=== PATIENT | male | born 1960 | race Caucasian/White ===

== ENCOUNTER 2017-04-02 11:40 | Inpatient (IN) | payer BC, OTHER ==
[2017-04-02] VITALS (23 sets, daily range): BP systolic 88–117; BP diastolic 71–91
[~2017-04-02] VITALS: Ht 185.4 cm; Wt 133.8 kg
--- NOTE | ~2017-04-02 | EKG ---
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 : 1960 Requested By: Darrell Jiménez Order Number: [id number] MD: Darrell Jiménez Measurements Intervals [place] Rate: 124 P: PA: QRS: 52 QRSD: 87 T: 239 QT: 315 QTc: 453 Interpretive Statements Atrial flutter with 2:1 AV block Low voltage, extremity leads Abnormal R-wave progression, late transition Nonspecific T abnormalities, inferior leads Baseline wander in lead(s) V2 Electronically Signed On 04-04-2017 17:33:04 KRAFT DIGESTER OPERATOR by Darrell Jiménez [email or web address] <ELECTRONICALLY SIGNED> By: Darrell Jiménez MD 04/04/17 1733 1431 1431 Darrell Jiménez MD /MILDRED
--- NOTE | ~2017-04-02 | HC ---
[facility] [place] [address] CONSULTATION Name: MARILEE SALCEDO Room #: [facility]- ADM IN M.R.#: [id number] Admission: 04/02/17 Attend Phys: Bubba Bautista MD Discharge: Date of : 62 Report #: [id number] THIS REPORT FOR: //name// CC: Fei Bautista REASON FOR CONSULTATION: Hypernatremia. HISTORY OF PRESENT ILLNESS: A 56-year-old with extensive past medical history. He was transferred from [facility]. He was found to be hypoxic and was transferred for further evaluation and management. He required intubation and was admitted to the ICU. The patient is not able to provide me with the details of the history. His girlfriend is by bedside and she provided me with all of the history. He is a 56-year-old way back on 03/17 had some issues with chest pain while at work. He went to a [facility]. He was found to have extensive coronary artery disease and required intubation. Cardiac catheterization was done. He had V-fib and V-tach arrest. He was placed on a balloon pump post procedure. Ejection fraction was found to be 20%. He had large bilateral pulmonary emboli and DVT of the lower extremities. He was stabilized in [place] and was transferred to the [facility] for further rehabilitation. Emergency medical services were called on the patient after his desaturation where he was found to be in atrial flutter with a heart rate of 150. Chest x-ray on presentation showed bilateral infiltrates. His girlfriend reported to me that he has very decreased p.o. intake or reduced p.o. intake in the last few days. He failed swallowing evaluation. He was receiving some sort of diuretics in the facility. I am being asked to manage his hypernatremia. PAST MEDICAL HISTORY: 1. Coronary artery disease as stated above, recent STEMI with three stents and balloon pump therapy. 2. Cardiogenic shock. 3. V Fib. 4. V tach. 5. Atrial flutter. 6. Bilateral pulmonary emboli. 7. IVC filter placement. 8. DVT of the lower extremities. PAST SURGICAL HISTORY: Cardiac catheterization and IVC filter placement. FAMILY HISTORY: Per his girlfriend, he has extensive coronary artery disease in his family SOCIAL HISTORY: He is a smoker, but no drug or alcohol abuse. REVIEW OF SYSTEMS: Unobtainable. Currently, the patient is intubated and sedated. [facility] [address] [place] [address] CONSULTATION Name: MARILEE SALCEDO Room #: 245-P [facility] IN [facility]#: [id number] Admission: 04/02/17 Attend Phys: Bubba Bautista MD Discharge: Date of : 62 Report #: [id number] PHYSICAL EXAMINATION: VITAL SIGNS: Today, blood pressure is 101/78. Pulse rate is 115. HEAD AND NECK: Intubated. CHEST: Decreased air entry bilaterally with crackles. CARDIOVASCULAR: Irregular with no rub. ABDOMEN: Soft and nontender. LOWER EXTREMITIES: +2 edema. LABORATORY DATA: From today reviewed. White blood cell count is up to 28.9, hemoglobin 13 and platelets 320. Sodium 157, potassium 3.5, BUN 52 and creatinine 1.5 at baseline. His chest x-ray was reviewed and it showed bilateral pulmonary infiltrates . IMAGES: CT, bilateral pleural effusion. ASSESSMENT: 1. Hypernatremia: 2. Acute respiratory failure. 3. Possible pneumonitis, hospital-acquired, vent associated. 4. Sepsis. 5. Atrial flutter. 6. Extensive coronary artery disease, V-fib, V-tach arrest. 7. Ischemic cardiomyopathy with an ejection fraction of 20%. 6. It will be very difficult to manage the patient's electrolyte given his heart status. He had received numerous combinations of IV fluids and diuretics. He has decreased p.o. intake and failed swallowing in the last 48 hours. As for now, I will place him on a very gentle D5W regimen to rectify his sodium. I would like for him to have some tube feed and flushes when he is more stable. 7. Septic workup had been initiated. 8. Avoid diuresis for today; however, he will definitely need some diuresis in the next 24 hours given his volume status and his chest x-ray. 9. Cardiology team is managing his flutter, coronary artery disease and cardiomyopathy. 10. Vent management per Pulmonary. 11. Strict input and output. This is hypervolemic hypernatremia and we will try to manage with a combination of free water and diuretics. We will continue to follow along. <ELECTRONICALLY SIGNED> By: Julio Robertson MD 04/06/17 0850 1503 0424 Julio Robertson MD /nt
--- NOTE | ~2017-04-02 | HC ---
[facility] [place] [address] CONSULTATION Name: MARILEE SALCEDO Room #: 209-P ADM IN M.R.#: [id number] Admission: 04/02/17 Attend Phys: Bubba Bautista MD Discharge: Date of : 62 Report #: [id number] THIS REPORT FOR: //name// CC: Fei Bautista DATE OF SERVICE: 04/14/2017 HISTORY OF PRESENT ILLNESS: A 56-year-old white male who had an out of the hospital cardiac arrest in 02/2017, was hospitalized at [facility]. His course was complicated by respiratory failure. He was noted to have pericardial effusion, DVT with PE with IVC filter, severe cardiomyopathy. He was able to be transferred to [facility] for 1 day, but while he was there, he started running a fever with worsening shortness of breath. He was readmitted this time to [facility]. He is noted to have respiratory failure with pneumonia, was reintubated from 04/02 until 04/09. He underwent thoracentesis of the left side. He has had atrial flutter, treated with digoxin and amiodarone. He is noted to have ischemic cardiomyopathy with an ejection fraction of 20%. He has a history of large bilateral saddle embolus and left lower extremity DVT and has an IVC filter in place. He has been treated with Lovenox, but this has been on hold after hematuria and thoracentesis. He is noted to have MSSA pneumonia. He has dysphagia with speech therapy involved and is on a pureed with nectar thickened liquid diet that is just starting now. He currently has a Dobhoff feeding tube in place. He does have an encephalopathy that is noted to be improving. He has been noted to have severe sepsis. He is noted to be very weak with his prolonged hospitalizations. We are seeing him in rehabilitation medicine consultation. PAST MEDICAL HISTORY: As noted above. He has a history of coronary artery disease, COPD, ischemic cardiomyopathy, history of DVT, pulmonary embolism, and chronic anticoagulation. PAST SURGICAL HISTORY: Unknown. SOCIAL HISTORY: Lives in [place], [place] with a female significant other, 4 steps in. He did not utilize gait aids previously. There are 14 inside steps. 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 Significant other apparently works outside the home. ALLERGIES: CAMPHOR, MENTHOL, PHENOL, SALICYLIC ACID. MEDICATIONS: Please see the full medication listing. REVIEW OF SYSTEMS: Very weak, has fear of falling. No complaints currently of chest pain, shortness of breath, or abdominal discomfort. No focal extremity pain complaints. [address] [address] CONSULTATION Name: MARILEE SALCEDO Room #: 209-P [facility] IN M.R.#: [id number] Admission: 04/02/17 Attend Phys: Bubba Bautista MD Discharge: Date of : 62 Report #: [id number] PHYSICAL EXAMINATION: GENERAL: A 56-year-old obese white male, in no obvious distress. VITAL SIGNS: Last recorded height of 6 feet 1 inch with a weight of 303 pounds. Temperature 97.9, pulse 71, respirations 17, blood pressure 90/74. NEUROLOGIC: He has the Dobhoff feeding tube in place. Nasal prong O2. Facies appeared symmetric. He has a soft voice, could verbalize some basic statements. We will follow basic 1 step commands. EOMs are full. EXTREMITIES: Functional range of motion of the upper extremities with arms, both quite weak a grade 3-3+ lower extremities. He has chronic venous stasis changes in his legs. Strength is quite weak a grade 3. Tone is intact. He actually was needing assist of 3 to transfer to the chair. There is a note of [facility] lift usage. ASSESSMENT: A 56-year-old male with the following problem list: 1. Multifactorial encephalopathy appears to be improving. 2. Critical illness myopathy. 3. Severe sepsis. 4. Respiratory failure with MSSA pneumonia. 5. Atrial flutter, on digoxin and amiodarone. 6. Status post thoracentesis. 7. History of large bilateral saddle embolus and left lower extremity DVT. IVC filter in place. Lovenox on hold after hematuria and thoracentesis. 8. Hematuria. 9. Coronary artery disease with recent STEMI and stent placement at [facility]. 10. Ischemic cardiomyopathy, left ventricular ejection fraction 20%. 11. Exogenous obesity. 12. Chronic anticoagulation. PLAN: I encouraged the patient regarding participating and working hard in therapies to try to improve his strength and endurance. We will follow along regarding rehab therapy issues. He is certainly may be a candidate for an acute in-hospital inpatient rehabilitation stay as he further medically stabilizes. We will be glad to follow along with you regarding his rehab therapy needs. <ELECTRONICALLY SIGNED> By: Bubba Mcnulty MD 04/17/17 1306 1140 1718 Bubba Mcnulty MD /ANTONIA
--- NOTE | ~2017-04-02 | HC ---
[facility] [place] [address] CONSULTATION Name: MARILEE SALCEDO Room #: 245-P ADM IN M.R.#: [id number] Admission: 04/02/17 Attend Phys: Bubba Bautista MD Discharge: Date of : 62 Report #: [id number] THIS REPORT FOR: //name// CC: Fei Bautista DATE OF SERVICE: 04/03/2017 REASON FOR CONSULTATION: I was asked to evaluate concerning sepsis and respiratory failure. HISTORY OF PRESENT ILLNESS: The patient is a 56-year-old, initially admitted to [facility] on 03/11/2017 with acute WA. He underwent cardiac catheterization, found multivessel disease. He had evidence of cardiogenic shock with inferior posterior WA. He had total occlusion of the LAD. He had intraaortic balloon pump placed, required multiple defibrillations for cardiac arrest due to VT and v fib. Post-procedure was intubated. He had bilateral infiltrates. He was seen by the ID service there and placed on vancomycin and Zosyn. He was later weaned from the ventilator. I do not have any microbiology reports, but her last hospital note available noted that he had been extubated and was improving. No documentation of a specific organism causing pneumonia. My suspicion is he likely had aspiration component. He was then transferred to [facility] on BiPAP. Developed further respiratory compromise, fever and was urgently transported to [facility] Emergency Room. There he was intubated, placed on mechanical ventilation. He had temperature up to 102.2 degrees. Required fluid resuscitation. Now off pressors. He had atrial fibrillation/flutter. Now on FiO2 of 80%. He has some bloody tracheal secretions. No emesis. No diarrhea. He has an indwelling Hayward catheter. ALLERGIES: CAMPHOR AND SALICYLIC ACID. MEDICATIONS: As noted on his MAY, which were reviewed. Now vancomycin, Zosyn and Levaquin. PAST MEDICAL HISTORY: Hypertension, hyperlipidemia, obesity, tobacco abuse, previous saddle pulmonary embolus in 06/2016, IVC filter placement. FAMILY HISTORY: Noncontributory. SOCIAL HISTORY: Smoker of cigarettes, unclear on his alcohol use. 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 REVIEW OF SYSTEMS: The patient is unable to give any details. He was intubated. He was sedated on FiO2 of 80%. He has a right upper extremity PICC, indwelling Hayward catheter, Dobbhoff tube in place. [facility] [address] [place] [address] CONSULTATION Name: MARILEE SALCEDO Room #: 245-P [facility] IN ..#: [id number] Admission: 04/02/17 Attend Phys: Bubba Bautista MD Discharge: Date of : 62 Report #: [id number] PHYSICAL EXAMINATION: VITAL SIGNS: Temperature is 102 degrees, heart rate 115, blood pressure 101/78. GENERAL: He is on Cardizem and amiodarone drip. He is on propofol. He was mottled in his lower extremities. 2+ anasarca. LUNGS: Coarse bilaterally. HEART: Tachycardic and regular. No appreciable murmur or rub. ABDOMEN: Obese. No hepatosplenomegaly or mass appreciated. EXTERNAL GENITALIA: Unremarkable. EXTREMITIES: Has a pressure wound to the plantar aspect of his right foot over the fifth metatarsal region. No surrounding cellulitis. LABORATORY STUDIES: Sodium 157, potassium 3.5, bicarbonate 33, creatinine 1.5. Liver function test normal. Lactate 2. Troponin 0.19. BNP 4296. Hemoglobin 13, WBC 28.9 with 90% segs, 3% bands, platelet count was 320,000. Urinalysis: Few wbc's, moderate rbc's, few bacteria. Blood culture is negative to date. Sputum culture pending. Influenza antigen negative. Chest x-ray: Bilateral effusions with basilar infiltrates. CT abdomen: No definite pathology. Does have bilateral effusions and atelectasis, infiltrates in the bases. IMPRESSION: A 56-year-old with underlying coronary disease, obesity, hypertension, post-myocardial infarction and cardiogenic shock with respiratory failure, now with healthcare-associated pneumonia, most likely cause of his decline. Does have bilateral infiltrates with bilateral effusions. He has no organisms yet identified. I do not know of any specific pathogen identified at [facility]. Would recommend continuing broad antibiotic coverage and full support. We will obtain microbiology reports from [facility] and obtain blood, urine and sputum cultures here. Cardiovascular Medicine is following as well as Pulmonary Medicine. <ELECTRONICALLY SIGNED> By: Christophe Mello MD 04/06/17 0625 1249 2218 Christophe Mello MD /nt
--- NOTE | ~2017-04-02 | CNG ---
[facility] [place] [address] CYTO-NONGYN REPORT PROCEDURE Name: MARILEE DISLA Room #: 245-P ADM IN M.R.#: [id number] Admission: 04/02/17 Date of : 62 Discharge: Report #: [id number] Path Case #: [id number] CYTOPATHOLOGY REPORT COLLECTION DATE: 04/11/2017 RECEIVED DATE: 04/13/2017 SUBMITTING PHYS: Dr. Helen Brock OTHER PHYS: Dr. Bubba Mello CLINICAL HISTORY: HCAP, respiratory failure with hypoxia SPECIMEN(S) RECEIVED: A.Pleural fluid, Left * * * * * * * * * * * * FINAL DIAGNOSIS: A. Left Pleural fluid: - No definite malignant epithelial cells identified. Scattered highly reactive mesothelial cells are present. PATHOLOGIST: Margie Sauceda M.D. REPORT ELECTRONICALLY SIGNED BY: Margie Sauceda M.D. DATE/TIME: 04/14/2017 13:22 * * * * * * * * * * * * GROSS PATHOLOGY: A. Pleural fluid, Left: The specimen is submitted unfixed, labeled "Marilee Disla". Received by the Cytology Department is 34 mL of cloudy red fluid. One ThinPrep slide and a formalin fixed cell block were prepared. ([id number]) BOTTOM TURNING LATHE TURNER(S): GENEVA Sam(ASCP) INITIAL CPT CODE(S): A; 38899, 91885 Professional services performed by [facility] at [facility] [address], [place] [address] Technical services performed by [facility] at [address] [place] [address]., [address], [place] [address]. [facility] [address] [place] [address], [facility] [address] [place], [place] [address] [place] [address] [place] [address] CYTO-NONGYN REPORT PROCEDURE Name: MARILEE DISLA Room #: 245-P ADM IN M.R.#: [id number] Admission: 04/02/17 Date of : 62 Discharge: Report #: [id number] Path Case #: [id number] PHONE: [phone] DIRECTOR: Quinn rBeen M.D. * * * END OF REPORT * * *
--- NOTE | ~2017-04-02 | EKG ---
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
--- NOTE | ~2017-04-02 | 2DMMODE ---
[address] [address] 2 D/M-MODE ECHOCARDIOGRAM Name: MARILEE SALCEDO Room #: 245-P ADM IN M.R.#: [id number] Admission: 04/02/17 Attend Phys: Wanda Perez Discharge: Date of : 62 Date of Service: 04/06/1708 Report #: [id number] THIS REPORT FOR: //name// APPROVED REPORT Study performed: 04/06/2017 08:13:54 EXAM: Limited 2D Echocardiogram Patient Location: ICU Room #: [facility] Status: routine BSA: 2.56 HR: 85 bpm BP: 93/58 mmHg Other Information Study Quality: Adequate Indications Limited follow up echo for LV function and pericardial effusion. Left Ventricle Left ventricular systolic function is severely decreased. LVEF is 25%. Right Ventricle Right ventricle is hypokinetic. Aortic Valve The aortic valve is normal in structure. Mitral Valve Mitral annular calcification Tricuspid Valve The tricuspid valve is normal in structure. Great Vessels IVC is dilated and collapses <50% with inspiration. Pericardium Trivial pericardial effusion. Left pleural effusion noted. [address] [address] 2 D/M-MODE ECHOCARDIOGRAM Name: MARILEE SALCEDO Room #: 245-P ADM IN M.R.#: [id number] Admission: 04/02/17 Attend Phys: Wanda Perez Discharge: Date of : 62 Date of Service: 04/06/17907 Report #: [id number] <Conclusion> Left ventricular systolic function is severely decreased. LVEF is 25%. The aortic valve is normal in structure. Mitral annular calcification Trivial pericardial effusion. Left pleural effusion noted. <ELECTRONICALLY SIGNED> By: Sean Cowart MD, FACC 04/06/17907 7 7 Sean Cowart MD, FACC /INF
--- NOTE | ~2017-04-02 | H ---
[facility] [place] [address] HISTORY AND PHYSICAL Name: MARILEE SALCEDO Room #: 245-P [facility] IN M.R.#: [id number] Admission: 04/02/17 Attend Phys: Bubba Bautista MD Discharge: Date of : 62 Report #: [id number] THIS REPORT FOR: //name// CC: Fei Bautista DATE OF SERVICE: 04/02/2017 CHIEF COMPLAINT: Shortness of breath. HISTORY OF PRESENT ILLNESS: The patient is a 56-year-old gentleman transferred from [facility] with reports of shortness of breath and lethargy. He was transferred their late yesterday evening from [facility] for continued care following a cardiac incident. Apparently, he suffered a myocardial infarction that required placement of a stent via cardiac catheterization and developed respiratory issues during his stay. He was transferred on BiPAP and medical therapy with hopes to wean from the BiPAP. However, early this morning became more lethargic with low O2 sats despite full treatment and he was tachycardic. He also developed fever to 101 and was directed to the ER. No further information is available from the patient as he is intubated and sedated and I have no records from the outlying hospitals available. All the information was obtained by reviewing the electronic record and speaking to the ER physician. PAST MEDICAL HISTORY: Coronary artery disease, COPD, ischemic cardiomyopathy, history of DVT and pulmonary embolus in 06/2016, chronic anticoagulation. PAST SURGICAL HISTORY: Unknown. FAMILY HISTORY: Unknown. SOCIAL HISTORY: Unknown. ALLERGIES: CAMPHOR, PHENOL, MENTHOL, SALICYLIC ACID. MEDICATIONS: Albuterol, amiodarone, Eliquis, aspirin, Plavix, Ativan, Lasix, diltiazem, vancomycin, Zosyn, Haldol. REVIEW OF SYSTEMS: He is unable to give a review. OBJECTIVE: VITAL SIGNS: Temperature 39, pulse 159, respirations 25, blood pressure 103/71, O2 sat 99% on the ventilator. GENERAL: He is sedated with life support tubes in place. HEAD AND NECK: Unremarkable. LUNGS: Clear anteriorly, diminished in the bases. [facility] [address] [place] [address] HISTORY AND PHYSICAL Name: MARILEE SALCEDO Room #: 245-P [facility] IN M.R.#: [id number] Admission: 04/02/17 Attend Phys: Bubba Bautista MD Discharge: Date of : 62 Report #: [id number] HEART: Tachycardic, regular rhythm. ABDOMEN: Soft, obese, normoactive bowel sounds. EXTREMITIES: No cyanosis, clubbing or edema. There is a small skin area on the right foot. NEUROLOGIC: He is sedated currently. LABORATORY DATA: White count 22. Sodium 157, BUN 50, creatinine 1.5, glucose 305, bilirubin 1.6. ASSESSMENT: 1. Sepsis. 2. Hypoxic respiratory failure. 3. Coronary artery disease. 4. Recent myocardial infarction with reports of stent placement. 5. Ischemic cardiomyopathy with reports of ejection fraction 20%. 6. History of venous thromboembolism 06/2016. 7. Atrial fibrillation with rapid ventricular response. 8. Hypernatremia. 9. Moderate protein-calorie malnutrition. PLAN: He has been intubated in the ER and placed in ICU. Dr. Almeida has assessed him for critical care and pulmonary support. Dr. Mello has been consulted from Infectious Disease and Dr. Adan from Cardiology. He remains critically ill with full ICU care in place. <ELECTRONICALLY SIGNED> By: Bubba Bautista MD 04/03/17 0927 1643 1701 Bubba Bautista MD /nt
--- NOTE | ~2017-04-02 | 2DMMODE ---
[facility] [address] [place] [address] 2 D/M-MODE ECHOCARDIOGRAM Name: MARILEE SALCEDO Room #: 245-P ADM IN M.R.#: [id number] Admission: 04/02/17 Attend Phys: Wanda Perez Discharge: Date of : 62 Date of Service: 04/02/17 1658 Report #: [id number] THIS REPORT FOR: //name// APPROVED REPORT Study performed: 04/02/2017 15:05:04 EXAM: Comprehensive 2D, Doppler, and color-flow Echocardiogram Patient Location: ICU Room #: [facility] Status: routine BSA: 2.31 HR: 130 bpm BP: 103/71 mmHg Rhythm: Tachycardia Other Information Study Quality: Adequate/Patient in ICU on vent Technically limited study due to inability to move the patient and morbid obesity.. Indications Short of air. Recent MT. 2D Dimensions RVDd: 42.53 mm LVEF(%): 30.04 (>50%) IVSd: 7.88 (7-11mm) LVOT Diam: 22.85 (18-24mm) LVDd: 58.56 mm PWd: 10.49 (7-11mm) LVDs: 50.16 (25-40mm) Aortic Root: 38.75 mm Duenas's LVEF: 30.04 % Volumes Left Atrial Volume (Systole) Single Plane 4CH: 88.34 mL Single Plane 2CH: 60.93 mL LA ESV Index: 35.00 mL/m2 Aortic Valve AoV Peak Cedric.: 0.87 m/s AO Peak Gr.: 3.01 mmHg LVOT Max P.83 mmHg LVOT Max V: 0.68 m/s EDISON Vmax: 3.20 cm2 Mitral Valve [facility] [address] [place] [address] 2 D/M-MODE ECHOCARDIOGRAM Name: MARILEE SALCEDO Room #: 245-P [facility] IN .R.#: [id number] Admission: 04/02/17 Attend Phys: Wanda Perez Discharge: Date of : 62 Date of Service: 04/02/17 1658 Report #: [id number] MV Decel. Time: 167.05 ms MV E Max Cedric.: 0.94 m/s Pulmonary Valve PV Peak Cedric.: 0.66 m/s PV Peak Gr.: 1.73 mmHg Tricuspid Valve RAP Estimate: 15.00 mmHg Left Ventricle Left ventricle is mildly dilated. There is global hypokinesis of the left ventricle. There is normal left ventricular wall thickness. Left ventricular systolic function is severely decreased. LVEF <20%. This study is not technically sufficient to allow evaluation of the LV diastolic function. Right Ventricle The right ventricle is normal size. Right ventricle is mildly hypokinetic. Atria Left atrium is mildly dilated. The right atrium size is normal. Aortic Valve The aortic valve is normal in structure. Trace aortic regurgitation. There is no aortic valvular stenosis. Mitral Valve There is mitral annular calcification. Mild mitral regurgitation. Tricuspid Valve The tricuspid valve is normal in structure. There is no tricuspid valve regurgitation noted. Unable to assess PA pressure. Pulmonic Valve Pulmonic valve is not well visualized. Great Vessels Aortic root is mildly dilated at 3.9cm. Ascending aorta is not well visualized. IVC is dilated and collapses <50% with inspiration. Pericardium Moderate pericardial effusion. [facility] [address] [place] [address] 2 D/M-MODE ECHOCARDIOGRAM Name: MARILEE SALCEDO Room #: 245-P [facility] IN M.R.#: [id number] Admission: 04/02/17 Attend Phys: Wanda Perez Discharge: Date of : 62 Date of Service: 04/02/171657 Report #: [id number] <Conclusion> Technically difficult study Left ventricular systolic function is severely decreased. There is global hypokinesis of the left ventricle. LVEF <20%. The aortic valve is normal in structure. No aortic valvular stenosis. Trace insufficiency There is mitral annular calcification. Mild mitral regurgitation. Moderate pericardial effusion. <ELECTRONICALLY SIGNED> By: Sean Cowart MD, [facility] 04/02/171657 57 1658 Sean Cowart MD, FACC /INF
--- NOTE | ~2017-04-02 | HC ---
[facility] [place] [address] CONSULTATION Name: MARILEE SALCEDO Room #: [facility]- ADM IN M.R.#: [id number] Admission: 04/02/17 Attend Phys: Bubba Bautista MD Discharge: Date of : 62 Report #: [id number] THIS REPORT FOR: //name// CC: Fei Bautista DATE OF SERVICE: 04/02/2017 REFERRING PROVIDER: Dr. Fei Mello. REASON FOR CONSULTATION: Respiratory failure. CHIEF COMPLAINT: Shortness of breath. HISTORY OF PRESENT ILLNESS: Our group is called by Dr. Steven in the Emergency Department to consult to evaluate this patient seen in the ICU. The patient is a 56-year-old male, who is currently on the ventilator and unable to give any history. Apparently, he was recently hospitalized at [facility] for acute myocardial infarction, may have been transferred on a ventilator to [facility], although records are scanned, apparently was seen earlier today there after recent admission, just what sounds like yesterday, was subsequently placed on BiPAP due to respiratory failure, fever and pulmonary infiltrates and subsequently transferred here for further evaluation. The patient was in respiratory distress in the Emergency Department and subsequently intubated and admitted, noted to be hypotensive, febrile, leukocytosis, as mentioned central pulmonary infiltrates bilaterally as well as significant hemoptysis. The patient is now reasonably stable after some IV fluids, on mechanical ventilatory support in the ICU. The patient has been anticoagulated with Eliquis and Plavix, presumably due to recent ME and history of atrial fibrillation and prior pulmonary emboli. ALLERGIES: INCLUDE SALICYLIC ACID, MENTHOL, CAMPHOR, AND PHENOL. MEDICATIONS: Included amiodarone, albuterol, Eliquis, aspirin, Plavix, Ativan, Lasix and then recently vancomycin, Zosyn, Haldol. PAST MEDICAL HISTORY: 1. History of coronary artery disease. 2. Atrial fibrillation. 3. History of pulmonary embolism in 06/2016. SOCIAL HISTORY, FAMILY HISTORY AND REVIEW OF SYSTEMS: Unobtainable at present due to current status neurologically. PHYSICAL EXAMINATION: VITAL SIGNS: Temperature 39.0, pulse 160s and irregular, respiratory rate 20s, [facility] [address] [place] [address] CONSULTATION Name: MARILEE SALCEDO Room #: 245-P ADM IN M.R.#: [id number] Admission: 04/02/17 Attend Phys: Bubba Bautista MD Discharge: Date of : 62 Report #: [id number] blood pressure 103/71. GENERAL: This is an obese, middle-aged male, sedated on mechanical ventilatory support. ENT: Reveals endotracheal tube in place. NECK: Supple, no lymphadenopathy. What appears to be prior right IJ puncture is noted in the right neck. LUNGS: Coarse rhonchi heard throughout. CARDIOVASCULAR: Heart was tachycardic and irregular. No murmurs. ABDOMEN: Obese, soft, nontender, no masses. Bowel sounds diminished, but present. EXTREMITIES: Slightly cool on the right greater than the left, 1+ pulses in the upper and lower extremities, some chronic venous stasis appearing changes noted in the lower extremities. NEUROLOGIC: The patient heavily sedated, not responsive. LABORATORY DATA: White blood cell count 23,000, hemoglobin 15, hematocrit 48, platelet count 443. Sodium 156, potassium 3.8, chloride 115, bicarbonate 34, BUN 49, creatinine 1.4, glucose 356. Arterial blood gas on assist control, tidal volume 600, rate of 16, PEEP of 8, FiO2 100% revealed a lactate of 2.36, pH 7.42, pCO2 47, pO2 139, bicarbonate 30. ProBNP was 4296. Chest x-ray as described in HPI. IMPRESSION: 1. Pulmonary infiltrates most consistent with healthcare-associated pneumonia, but also consider the possibility of influenza. This does not appear to be pulmonary edema process on chest radiograph. 2. Hemoptysis, likely due to above and ongoing aggressive anticoagulant therapy. 3. Recent myocardial infarction with probable stenting based on records available. 4. Respiratory failure, hypoxemic. 5. Morbid obesity. 6. Hyperglycemia. 7. Leukocytosis. 8. Cardiomyopathy by report, ejection fraction 20%. SUGGESTIONS: 1. The patient has already received broad-spectrum antimicrobial therapy. We will ask Infectious Disease services to assist with management of antibiotics. 2. Sputum and blood cultures. 3. Respiratory viral panel. 4. Begin sepsis protocol given elevated lactate, leukocytosis, fever and tachycardia. 5. Cardiology consultation regarding atrial fibrillation, recent myocardial infarction and cardiomyopathy. 6. Check echocardiogram. [address] [address] CONSULTATION Name: MARILEE SALCEDO Room #: 245-P ADM IN M.R.#: [id number] Admission: 04/02/17 Attend Phys: Bubba Bautista MD Discharge: Date of : 62 Report #: [id number] 7. ICU care. 8. Place central venous catheter, PICC line most appropriate given the aggressive anticoagulant therapy. 9. Hydration. 10. Free water to correct hypernatremia. 11. Obtain further records. 12. Discuss with family when available. Discussed with nursing at bedside and Dr. Steven in the Emergency Department. Total critical care time was 40 minutes at this point not including procedures. <ELECTRONICALLY SIGNED> By: Finn Almeida MD 04/03/17 1726 [id number] [id number] Finn Almeida MD /jazmin
--- NOTE | ~2017-04-02 | CNG ---
[facility] [place] [address] CYTO-NONGYN REPORT PROCEDURE Name: MARILEE DISLA Room #: 209-P ADM IN M.R.#: [id number] Admission: 04/02/17 Date of : 62 Discharge: Report #: [id number] Path Case #: [id number] CYTOPATHOLOGY REPORT COLLECTION DATE: 04/18/2017 RECEIVED DATE: 04/20/2017 SUBMITTING PHYS: Dr. Finn Almeida OTHER PHYS: Dr. Bubba Mello CLINICAL HISTORY: HCAP; Resp failure with hypoxia SPECIMEN(S) RECEIVED: A.Pleural fluid * * * * * * * * * * * * FINAL DIAGNOSIS: A. Pleural fluid: - No malignant epithelial cells identified. - Reactive mesothelial cells and acute and chronic inflammation identified. PATHOLOGIST: Emily Stevens M.D. REPORT ELECTRONICALLY SIGNED BY: Emily Stevens M.D. DATE/TIME: 04/21/2017 11:58 * * * * * * * * * * * * GROSS PATHOLOGY: A. Pleural fluid: The specimen is submitted unfixed, labeled "Marilee Disla". Received by the Cytology Department is 20 mL of cloudy yellow fluid. One ThinPrep slide and a formalin fixed cell block were prepared. (mm 04.20.2017) SAP DIRECTOR(S): GENEVA Posadas([facility] INITIAL CPT CODE(S): A; 04970, 55201 Professional services performed by [facility] at [place] [address], [place] [address] Technical services performed by [facility] at [address] [place] [address]., [address], [place] [address]. [facility] [address] [place] [address], [facility] [address] [place], [place] [address] [place] [address] [place] [address] CYTO-NONGYN REPORT PROCEDURE Name: MARILEE DISLA Room #: 209-P ADM IN M.R.#: [id number] Admission: 04/02/17 Date of : 62 Discharge: Report #: [id number] Path Case #: [id number] PHONE: [phone] DIRECTOR: Quinn Breen M.D. * * * END OF REPORT * * *
[2017-04-02 12:13] LABS: HEMATOCRIT 47.9 % (42.0-52.0); HEMOGLOBIN 15.1 gm/dL (14.0-18.0); MCH 30.1 pg (26.0-34.0); MCHC 31.5 g/dL (28.0-37.0); MCV 95.3 fL (80.0-100.0); PLATELET COUNT 443 thou/uL (150-400); RBC 5.02 mil/uL (4.50-6.00); RDW 15.4 % (10.5-14.5); WBC 22.6 thou/uL (4.0-11.0)
[2017-04-02 12:17] LABS: CALCIUM 9.6 mg/dL (8.5-10.1); CREATININE 1.4 mg/dL (0.7-1.3); POTASSIUM 3.8 mmol/L (3.5-5.1)
[2017-04-02 13:01] LABS: URINE BILIRUBIN NEGATIVE (Negative); URINE BLOOD 3+ (Negative); URINE CLARITY CLEAR; URINE COLOR YELLOW; URINE GLUCOSE-RANDOM* NEGATIVE (Negative); URINE KETONES NEGATIVE (Negative); URINE LEUKOCYTES-REFLEX NEGATIVE (Negative); URINE NITRITE-REFLEX NEGATIVE (Negative); URINE PROTEIN (DIPSTICK) 2+ (Negative); URINE SPECIFIC GRAVITY >= 1.030 (1.005-1.035)
[2017-04-02 13:03] LABS: ABSOLUTE NEUTROPHILS 20.6 thou/uL (1.4-8.2); ANISOCYTOSIS SLIGHT
[2017-04-02] MEDS ORDERED: ALBUTEROL2.5 MG/31 INH (13:29)
[2017-04-02] MEDS ORDERED: PACERONE 200 M200 M1 PO (13:29)
[2017-04-02] MEDS ORDERED: PLAVIX 75 MG TA75 M1 PO (13:30)
[2017-04-02] MEDS ORDERED: ASPIR 8181 M1 PO (13:30)
[2017-04-02] MEDS ORDERED: ATIVAN0.5 MG PO (13:30)
[2017-04-02] MEDS ORDERED: ELIQUIS5 MG PO (13:30)
[2017-04-02] MEDS ORDERED: MIRALAX17 GM PO (13:31)
[2017-04-02] MEDS ORDERED: LASIX 10 MG/10 MG/M1 IV PUSH (13:31)
[2017-04-02] MEDS ORDERED: CARDIZEM30 MG IV (13:32)
[2017-04-02] MEDS ORDERED: ZOSYN 3.3753.375 GM IV (13:33)
[2017-04-02] MEDS ORDERED: VANCO 1 GR1 GM/250 M IV (13:33)
[2017-04-02] MEDS ORDERED: HALDOL5 MG/1 ML IV (13:34)
[2017-04-02 13:41] LABS: CRYSTALS None Seen /LPF (None Seen); HYALINE CASTS 4-10 Moderate /LPF (None Seen); SQUAMOUS None Seen /LPF (0-3); URINE WBC-REFLEX 0-5 Rare /HPF (0-5)
[2017-04-02 13:42] LABS: BACTERIA-REFLEX 1-9 Few /HPF (None Seen)
[2017-04-02 14:28] LABS: BE(vivo) 4.6 mmol/L (-2 to +3); HCO3 30.1 mmol/L (22.0-26.0); PCO2 47.4 mmHg (35.0-45.0)
[2017-04-02 16:14] LABS: HEMATOCRIT 43.3 % (42.0-52.0); HEMOGLOBIN 13.7 gm/dL (14.0-18.0); MCH 30.2 pg (26.0-34.0); MCHC 31.7 g/dL (28.0-37.0); MCV 95.3 fL (80.0-100.0); RBC 4.54 mil/uL (4.50-6.00); RDW 15.6 % (10.5-14.5); WBC 22.5 thou/uL (4.0-11.0)
[2017-04-02 16:19] LABS: PLATELET COUNT 345 thou/uL (150-400)
[2017-04-02 16:29] LABS: ALBUMIN 2.4 g/dL (3.4-5.0); CREATININE 1.5 mg/dL (0.7-1.3); FIBRINOGEN 438.2 mg/dL (210-360); INR 1.3; POTASSIUM 3.9 mmol/L (3.5-5.1); PROTIME 13.1 Seconds (9.3-11.4); TOTAL BILIRUBIN 1.6 mg/dL (<0.1-1.0); TOTAL PROTEIN 6.6 g/dL (6.4-8.2)
[2017-04-02 16:49] LABS: ABSOLUTE NEUTROPHILS 20.3 thou/uL (1.4-8.2)
[2017-04-02 21:27] LABS: HEMATOCRIT 43.1 % (42.0-52.0); HEMOGLOBIN 13.7 gm/dL (14.0-18.0); MCH 30.1 pg (26.0-34.0); MCHC 31.8 g/dL (28.0-37.0); MCV 94.7 fL (80.0-100.0); PLATELET COUNT 335 thou/uL (150-400); RBC 4.55 mil/uL (4.50-6.00); RDW 15.5 % (10.5-14.5); WBC 27.3 thou/uL (4.0-11.0)
[2017-04-02 21:42] LABS: ALBUMIN 2.4 g/dL (3.4-5.0); CALCIUM 8.8 mg/dL (8.5-10.1); CREATININE 1.5 mg/dL (0.7-1.3); POTASSIUM 3.6 mmol/L (3.5-5.1); TOTAL BILIRUBIN 1.7 mg/dL (<0.1-1.0); TOTAL PROTEIN 6.4 g/dL (6.4-8.2); TROPONIN-I 0.22 ng/mL (<0.06)
[2017-04-02 21:44] LABS: APTT 26.5 Seconds (24.5-32.8); INR 1.3; PROTIME 13.7 Seconds (9.3-11.4)
[2017-04-02 21:58] LABS: ABSOLUTE NEUTROPHILS 25.1 thou/uL (1.4-8.2); ANISOCYTOSIS 1+; POLYCHROMASIA OCCASIONAL
[2017-04-03] VITALS (77 sets, daily range): BP systolic 85–108; BP diastolic 19–94
[2017-04-03 05:06] LABS: HEMATOCRIT 43.2 % (42.0-52.0); HEMOGLOBIN 13.1 gm/dL (14.0-18.0); MCH 29.8 pg (26.0-34.0); MCHC 30.4 g/dL (28.0-37.0); RBC 4.41 mil/uL (4.50-6.00); RDW 15.6 % (10.5-14.5); WBC 28.9 thou/uL (4.0-11.0)
[2017-04-03 05:20] LABS: ALBUMIN 2.2 g/dL (3.4-5.0); CALCIUM 8.5 mg/dL (8.5-10.1); CREATININE 1.5 mg/dL (0.7-1.3); POTASSIUM 3.5 mmol/L (3.5-5.1); TOTAL BILIRUBIN 1.6 mg/dL (<0.1-1.0); TOTAL PROTEIN 6.3 g/dL (6.4-8.2)
[2017-04-03 05:27] LABS: BE(vivo) 3.4 mmol/L (-2 to +3); HCO3 28.1 mmol/L (22.0-26.0); PCO2 42.9 mmHg (35.0-45.0); PO2 121.6 mmHg (80.0-100.0); pH 7.434 (7.360-7.450); sO2 98.5 % (92.0-98.0)
[2017-04-03 10:16] LABS: BE(vivo) 3.9 mmol/L (-2 to +3); HCO3 28.7 mmol/L (22.0-26.0); PCO2 43.8 mmHg (35.0-45.0); PO2 76.1 mmHg (80.0-100.0); pH 7.434 (7.360-7.450); sO2 95.6 % (92.0-98.0)
[2017-04-03 15:21] LABS: URINE BLOOD 2+ (Negative); URINE COLOR YELLOW; URINE GLUCOSE-RANDOM* NEGATIVE (Negative); URINE KETONES NEGATIVE (Negative); URINE LEUKOCYTES NEGATIVE (Negative); URINE NITRITE NEGATIVE (Negative); URINE PROTEIN (DIPSTICK) 1+ (Negative); URINE SPECIFIC GRAVITY >= 1.030 (1.005-1.035)
[2017-04-03 15:24] LABS: URINE BILIRUBIN NEGATIVE (Negative); URINE CLARITY HAZY
[2017-04-03 15:32] LABS: URINE CREATININE-RANDOM* 233.4 mg/dL; URINE SODIUM-RANDOM* < 5.0 mmol/L
[2017-04-03 15:41] LABS: BACTERIA 1-9 Few /HPF (None Seen); CASTS None Seen /LPF (None Seen); CRYSTALS None Seen /LPF (None Seen); SQUAMOUS None Seen /LPF (0-3); URINE RBC 0-2 Rare /HPF (0-2); URINE WBC None Seen /HPF (0-5)
[2017-04-04] VITALS (63 sets, daily range): BP systolic 72–103; BP diastolic 51–78
[2017-04-04 00:17] LABS: BE(vivo) 4.8 mmol/L (-2 to +3); HCO3 29.9 mmol/L (22.0-26.0); PCO2 46.2 mmHg (35.0-45.0); PO2 137.3 mmHg (80.0-100.0); pH 7.429 (7.360-7.450); sO2 98.8 % (92.0-98.0)
[2017-04-04 04:34] LABS: CALCIUM 8.4 mg/dL (8.5-10.1); CREATININE 1.7 mg/dL (0.7-1.3); PHOSPHORUS 3.8 mg/dL (2.5-4.9); POTASSIUM 3.4 mmol/L (3.5-5.1)
[2017-04-04 09:13] LABS: HEMATOCRIT 36.6 % (42.0-52.0); HEMOGLOBIN 11.7 gm/dL (14.0-18.0); MCH 30.4 pg (26.0-34.0); MCHC 32.1 g/dL (28.0-37.0); MCV 94.9 fL (80.0-100.0); RBC 3.86 mil/uL (4.50-6.00); RDW 15.5 % (10.5-14.5); WBC 22.5 thou/uL (4.0-11.0)
[2017-04-05] VITALS (69 sets, daily range): BP systolic 72–111; BP diastolic 46–78
[2017-04-05 05:00] LABS: HEMATOCRIT 36.3 % (42.0-52.0); HEMOGLOBIN 11.4 gm/dL (14.0-18.0); MCHC 31.5 g/dL (28.0-37.0); MCV 95.2 fL (80.0-100.0); RBC 3.81 mil/uL (4.50-6.00); RDW 15.8 % (10.5-14.5); WBC 17.5 thou/uL (4.0-11.0)
[2017-04-05 05:17] LABS: BE(vivo) 6.9 mmol/L (-2 to +3); HCO3 31.4 mmol/L (22.0-26.0); PCO2 44.6 mmHg (35.0-45.0); PO2 96.4 mmHg (80.0-100.0); pH 7.466 (7.360-7.450); sO2 97.6 % (92.0-98.0)
[2017-04-05 05:29] LABS: ALBUMIN 1.7 g/dL (3.4-5.0); CALCIUM 7.9 mg/dL (8.5-10.1); CREATININE 1.4 mg/dL (0.7-1.3); PHOSPHORUS 2.3 mg/dL (2.5-4.9)
[2017-04-05 17:34] LABS: ALBUMIN 1.6 g/dL (3.4-5.0); CALCIUM 7.6 mg/dL (8.5-10.1); CREATININE 1.4 mg/dL (0.7-1.3); PHOSPHORUS 2.1 mg/dL (2.5-4.9); POTASSIUM 3.3 mmol/L (3.5-5.1)
[2017-04-06] VITALS (94 sets, daily range): BP systolic 83–114; BP diastolic 55–80
[2017-04-06 05:06] LABS: HEMATOCRIT 32.4 % (42.0-52.0); HEMOGLOBIN 10.2 gm/dL (14.0-18.0); MCHC 31.5 g/dL (28.0-37.0); MCV 95.1 fL (80.0-100.0); RBC 3.4 mil/uL (4.50-6.00); RDW 15.7 % (10.5-14.5); WBC 11.2 thou/uL (4.0-11.0)
[2017-04-06 05:09] LABS: ALBUMIN 1.5 g/dL (3.4-5.0); CALCIUM 7.4 mg/dL (8.5-10.1); CREATININE 1.1 mg/dL (0.7-1.3); MAGNESIUM 2.3 mg/dL (1.8-2.4); PHOSPHORUS 2.1 mg/dL (2.5-4.9); POTASSIUM 3.3 mmol/L (3.5-5.1)
[2017-04-06 05:20] LABS: BE(vivo) 9.1 mmol/L (-2 to +3); HCO3 32.5 mmol/L (22.0-26.0); PCO2 39.8 mmHg (35.0-45.0); PO2 67.1 mmHg (80.0-100.0); sO2 95.1 % (92.0-98.0)
[2017-04-06 13:08] LABS: CALCIUM 7.5 mg/dL (8.5-10.1); CREATININE 1.1 mg/dL (0.7-1.3); POTASSIUM 3.4 mmol/L (3.5-5.1)
[2017-04-06 13:09] LABS: HEMATOCRIT 33.9 % (42.0-52.0); HEMOGLOBIN 10.5 gm/dL (14.0-18.0); MCH 29.9 pg (26.0-34.0); MCHC 30.8 g/dL (28.0-37.0); RBC 3.5 mil/uL (4.50-6.00); RDW 15.6 % (10.5-14.5)
[2017-04-07] VITALS (58 sets, daily range): BP systolic 65–106; BP diastolic 26–80
[2017-04-07 05:35] LABS: ALBUMIN 1.5 g/dL (3.4-5.0); CALCIUM 7.5 mg/dL (8.5-10.1); POTASSIUM 3.4 mmol/L (3.5-5.1)
[2017-04-07 08:43] LABS: BE(vivo) 4.7 mmol/L (-2 to +3); HCO3 27.8 mmol/L (22.0-26.0); PCO2 36.7 mmHg (35.0-45.0); PO2 87.3 mmHg (80.0-100.0); pH 7.498 (7.360-7.450); sO2 97.3 % (92.0-98.0)
[2017-04-08] VITALS (69 sets, daily range): BP systolic 78–112; BP diastolic 53–81
[2017-04-08 01:09] LABS: ADENOVIRUS Negative (Negative); INFLUENZA A Negative (Negative); INFLUENZA B Negative (Negative); METAPNEUMOVIRUS Negative (Negative); PARAINFLUENZA 1 Negative (Negative); PARAINFLUENZA 2 Negative (Negative); PARAINFLUENZA 3 Negative (Negative); RHINOVIRUS Negative (Negative); RSV A Negative (Negative); RSV B Negative (Negative)
[2017-04-08 05:40] LABS: ALBUMIN 1.4 g/dL (3.4-5.0); CALCIUM 7.6 mg/dL (8.5-10.1); CREATININE 0.8 mg/dL (0.7-1.3); PHOSPHORUS 2.1 mg/dL (2.5-4.9); POTASSIUM 3.5 mmol/L (3.5-5.1)
[2017-04-08 11:50] LABS: MAGNESIUM 2.7 mg/dL (1.8-2.4); POTASSIUM 3.8 mmol/L (3.5-5.1)
[2017-04-09] VITALS (22 sets, daily range): BP systolic 81–115; BP diastolic 52–75
[2017-04-09 06:24] LABS: ABSOLUTE NEUTROPHILS 5.8 thou/uL (1.4-8.2); BASOPHILS 0.2 % (0.0-2.0); EOSINOPHILS 2.9 % (0.0-3.0); HEMATOCRIT 32.7 % (42.0-52.0); HEMOGLOBIN 10.5 gm/dL (14.0-18.0); LYMPHOCYTES 10.6 % (24.0-44.0); MCH 30.3 pg (26.0-34.0); MCHC 32.1 g/dL (28.0-37.0); MCV 94.3 fL (80.0-100.0); MONOCYTES 9.1 % (1.0-8.0); PLATELET COUNT 269 thou/uL (150-400); POLYS 77.2 % (36.0-66.0); RBC 3.47 mil/uL (4.50-6.00); RDW 15.1 % (10.5-14.5); WBC 7.5 thou/uL (4.0-11.0)
[2017-04-09 11:18] LABS: BE(vivo) 5.1 mmol/L (-2 to +3); HCO3 27.7 mmol/L (22.0-26.0); PCO2 33.7 mmHg (35.0-45.0); pH 7.532 (7.360-7.450); sO2 97.1 % (92.0-98.0)
[2017-04-10] VITALS (23 sets, daily range): BP systolic 105–135; BP diastolic 68–96
[2017-04-11] VITALS (23 sets, daily range): BP systolic 100–128; BP diastolic 65–96
[2017-04-11 05:19] LABS: HEMATOCRIT 38.9 % (42.0-52.0); HEMOGLOBIN 12.4 gm/dL (14.0-18.0); MCH 30.2 pg (26.0-34.0); MCHC 31.9 g/dL (28.0-37.0); MCV 94.7 fL (80.0-100.0); RBC 4.11 mil/uL (4.50-6.00); RDW 15.5 % (10.5-14.5); WBC 10.1 thou/uL (4.0-11.0)
[2017-04-11 05:23] LABS: HCO3 30.1 mmol/L (22.0-26.0); PCO2 41.3 mmHg (35.0-45.0); sO2 93.5 % (92.0-98.0)
[2017-04-11 05:38] LABS: CALCIUM 8.3 mg/dL (8.5-10.1); CREATININE 0.9 mg/dL (0.7-1.3); POTASSIUM 3.6 mmol/L (3.5-5.1)
[2017-04-11 07:54] LABS: APTT 27.1 Seconds (24.5-32.8); INR 1.2
[2017-04-11 09:53] LABS: CLARITY SLIGHTLY CLOUDY; COLOR AMBER; SOURCE LEFT CHEST; TOTAL VOLUME 63 mL
[2017-04-11 10:14] LABS: BF NUCLEATED CELLS 828; BF RBC 11571
[2017-04-11 10:52] LABS: BF MACROPHAGE 9; BF NEUTROPHILS 33
[2017-04-11 11:12] LABS: SOURCE THORACENTESIS
[2017-04-12] VITALS (23 sets, daily range): BP systolic 92–116; BP diastolic 56–77
[2017-04-12 06:11] LABS: BODY FLUID ALBUMIN 0.9 g/dL (()); BODY FLUID AMYLASE 9 U/L (()); BODY FLUID GLUCOSE 219 mg/dL (()); BODY FLUID LDH 176 IU/L (()); BODY FLUID PROTEIN 1.9 g/dL (())
[2017-04-13] VITALS (23 sets, daily range): BP systolic 90–111; BP diastolic 56–92
[2017-04-13 04:53] LABS: HEMATOCRIT 36.1 % (42.0-52.0); HEMOGLOBIN 11.4 gm/dL (14.0-18.0); MCH 29.6 pg (26.0-34.0); MCHC 31.5 g/dL (28.0-37.0); MCV 94.1 fL (80.0-100.0); RBC 3.84 mil/uL (4.50-6.00); RDW 15.4 % (10.5-14.5); WBC 8.9 thou/uL (4.0-11.0)
[2017-04-13 05:02] LABS: CALCIUM 8.3 mg/dL (8.5-10.1); CREATININE 0.8 mg/dL (0.7-1.3); POTASSIUM 3.1 mmol/L (3.5-5.1)
[2017-04-14] VITALS (23 sets, daily range): BP systolic 90–116; BP diastolic 60–78
[2017-04-14 04:45] LABS: HEMATOCRIT 33.9 % (42.0-52.0); HEMOGLOBIN 11.2 gm/dL (14.0-18.0); MCHC 33.1 g/dL (28.0-37.0); MCV 93.5 fL (80.0-100.0); RBC 3.63 mil/uL (4.50-6.00); RDW 15.1 % (10.5-14.5); WBC 9.4 thou/uL (4.0-11.0)
[2017-04-14 04:52] LABS: CALCIUM 8.3 mg/dL (8.5-10.1); CREATININE 0.7 mg/dL (0.7-1.3); POTASSIUM 3.2 mmol/L (3.5-5.1)
[2017-04-15] VITALS (10 sets, daily range): BP systolic 108–119; BP diastolic 68–84
[2017-04-15 05:06] LABS: CALCIUM 8.6 mg/dL (8.5-10.1); CREATININE 0.6 mg/dL (0.7-1.3); POTASSIUM 3.2 mmol/L (3.5-5.1)
[2017-04-16 00:28] VITALS: BP 120/72
[2017-04-16 04:10] LABS: HEMATOCRIT 33.6 % (42.0-52.0); HEMOGLOBIN 10.9 gm/dL (14.0-18.0); MCH 30.4 pg (26.0-34.0); MCHC 32.6 g/dL (28.0-37.0); MCV 93.4 fL (80.0-100.0); RBC 3.6 mil/uL (4.50-6.00); RDW 15.4 % (10.5-14.5); WBC 10.3 thou/uL (4.0-11.0)
[2017-04-16 04:19] LABS: ANION GAP < 0 mmol/L (7-16); BUN 23 mg/dL (7-18); CALCIUM 8.3 mg/dL (8.5-10.1); CHLORIDE 104 mmol/L (98-107); CO2 39 mmol/L (21-32); CREATININE 0.7 mg/dL (0.7-1.3); GLUCOSE 204 mg/dL (74-106); POTASSIUM 3.6 mmol/L (3.5-5.1); SODIUM 142 mmol/L (136-145)
[2017-04-16 04:54] VITALS: BP 113/75
[2017-04-16 08:15] VITALS: BP 115/81
[2017-04-16 11:30] VITALS: BP 108/70
[2017-04-16 15:45] VITALS: BP 123/71
[2017-04-16 19:54] VITALS: BP 114/67
[2017-04-17 04:47] VITALS: BP 118/75
[2017-04-17 04:59] LABS: MCH 31.1 pg (26.0-34.0); MCHC 33.4 g/dL (28.0-37.0); MCV 92.9 fL (80.0-100.0); RBC 3.55 mil/uL (4.50-6.00); RDW 15.6 % (10.5-14.5); WBC 10.6 thou/uL (4.0-11.0)
[2017-04-17 05:38] LABS: CALCIUM 8.6 mg/dL (8.5-10.1); CREATININE 0.8 mg/dL (0.7-1.3); POTASSIUM 3.4 mmol/L (3.5-5.1)
[2017-04-17 15:15] VITALS: BP 107/58
[2017-04-17 18:50] LABS: CALCIUM 8.3 mg/dL (8.5-10.1); CREATININE 0.9 mg/dL (0.7-1.3); POTASSIUM 3.4 mmol/L (3.5-5.1)
[2017-04-17 20:40] VITALS: BP 105/69
[2017-04-18 04:48] LABS: HEMATOCRIT 32.5 % (42.0-52.0); HEMOGLOBIN 10.7 gm/dL (14.0-18.0); MCH 30.5 pg (26.0-34.0); MCHC 32.9 g/dL (28.0-37.0); MCV 92.7 fL (80.0-100.0); RBC 3.51 mil/uL (4.50-6.00); RDW 15.2 % (10.5-14.5); WBC 9.5 thou/uL (4.0-11.0)
[2017-04-18 05:05] LABS: CALCIUM 8.3 mg/dL (8.5-10.1); CREATININE 0.8 mg/dL (0.7-1.3); POTASSIUM 3.3 mmol/L (3.5-5.1)
[2017-04-18 05:36] VITALS: BP 99/64
[2017-04-18 07:23] VITALS: BP 101/54
[2017-04-18 09:57] LABS: APTT 26.9 Seconds (24.5-32.8); INR 1.1; PROTIME 11.1 Seconds (9.3-11.4)
[2017-04-18 12:15] VITALS: BP 104/51
[2017-04-18 12:55] LABS: BF NUCLEATED CELLS 446; BF RBC 2137
[2017-04-18 12:56] LABS: CLARITY CLOUDY; COLOR YELLOW; TOTAL VOLUME 60 mL
[2017-04-18 13:48] LABS: SOURCE THORACENTESIS
[2017-04-18 13:58] LABS: BF COMMENTS 1; BF MACROPHAGE 7; BF NEUTROPHILS 26
[2017-04-18 15:30] VITALS: BP 102/66
[2017-04-18 19:30] VITALS: BP 117/79
[2017-04-18 23:45] VITALS: BP 101/64
[2017-04-19 03:08] LABS: BODY FLUID ALBUMIN 1.1 g/dL (()); BODY FLUID AMYLASE 11 U/L (()); BODY FLUID GLUCOSE 235 mg/dL (()); BODY FLUID LDH 120 IU/L (()); BODY FLUID PROTEIN 2.2 g/dL (())
[2017-04-19 04:30] VITALS: BP 99/68
[2017-04-19 07:00] VITALS: BP 96/64
[2017-04-19 12:11] LABS: MAGNESIUM 1.8 mg/dL (1.8-2.4); POTASSIUM 3.4 mmol/L (3.5-5.1)
[2017-04-19 12:22] VITALS: BP 96/61
[2017-04-19 14:54] VITALS: BP 97/60
[2017-04-19 19:52] VITALS: BP 97/61
[2017-04-20 04:05] VITALS: BP 102/70
[2017-04-20 07:24] VITALS: BP 100/70
[2017-04-20 09:21] LABS: SOURCE CHEST
[2017-04-20 11:51] VITALS: BP 101/68
[2017-04-20 15:32] VITALS: BP 98/58
[2017-04-20 20:47] VITALS: BP 100/66
[2017-04-21 03:22] LABS: HEMATOCRIT 33.2 % (42.0-52.0); HEMOGLOBIN 10.9 gm/dL (14.0-18.0); MCH 30.4 pg (26.0-34.0); MCV 92.1 fL (80.0-100.0); RBC 3.6 mil/uL (4.50-6.00); RDW 15.4 % (10.5-14.5); WBC 8.2 thou/uL (4.0-11.0)
[2017-04-21 03:30] LABS: CALCIUM 8.1 mg/dL (8.5-10.1); CREATININE 0.8 mg/dL (0.7-1.3)
[2017-04-21 03:35] LABS: POTASSIUM 2.9 mmol/L (3.5-5.1)
[2017-04-21 04:33] VITALS: BP 100/56
[2017-04-21 07:53] VITALS: BP 104/69
[2017-04-21 20:33] VITALS: BP 94/63
[2017-04-21 22:13] LABS: MAGNESIUM 1.8 mg/dL (1.8-2.4); POTASSIUM 3.2 mmol/L (3.5-5.1)
[2017-04-22 04:35] VITALS: BP 102/65
[2017-04-22 07:26] VITALS: BP 102/65
[2017-04-22 07:57] VITALS: BP 105/71
[2017-04-22 08:17] VITALS: BP 105/71
[2017-04-22] MEDS ORDERED: ELIQUIS5 MG PO (14:19)
[2017-04-22] MEDS ORDERED: AUGMENTIN 875-1 EACH PO (14:19)
[2017-04-22] MEDS ORDERED: DUONEB 2.5-0.5 M3 ML INH (14:19)
[2017-04-22] MEDS ORDERED: CARVEDILOL3.125 MG PO (14:20)
[2017-04-22] MEDS ORDERED: ATORVASTATIN CA40 MG PO (14:20)
[2017-04-22] MEDS ORDERED: SERTRALINE HCL50 MG PO (14:21)
[2017-04-22] MEDS ORDERED: COZAAR 50 MG TA50 M1 PO (14:21)
[2017-04-22] MEDS ORDERED: LACTULOSE20 GM/30 M PER TUBE (14:21)
[2017-04-22] MEDS ORDERED: OXYCODONE HCL 55 MG PO (14:21)
[2017-04-22] MEDS ORDERED: DEMADEX20 MG PO (14:22)
[2017-04-22] MEDS ORDERED: GLIMEPIRIDE1 MG PO (14:22)
[2017-04-22] MEDS ORDERED: PANTOPRAZOLE SO40 M1 PO (14:22)
[2017-07-25] MEDS ORDERED: AMARYL4 MG PO (11:09)
[2017-07-31] MEDS ORDERED: COZAAR 25 MG TA25 M1 PO (08:29)
[2017-07-31] MEDS ORDERED: PACERONE200 MG PO (08:29)
[2017-07-31] MEDS ORDERED: CARVEDILOL3.125 MG PO (08:30)
[2017-07-31] MEDS ORDERED: LANTUS100 UNIT/M SUBQ (12:04)
[2017-07-31] MEDS ORDERED: NOVOLOG100 UNIT/1 SUBQ (12:05)
== END 2017-04-22 16:17 | DRG 870 ==
LOC: ER 11:40 → EROBS 13:59 → ICU 13:59 → 2N 04-15 13:32
PROVIDERS: Emergency Medicine; Hospitalist; Internal Medicine Cardiovascular Disease; Internal Medicine Geriatric Medicine; Internal Medicine Nephrology; Internal Medicine Pulmonary Disease; Nurse Practitioner Gerontology; Radiology Diagnostic Radiology; Specialist
PROC: 0BH17EZ Insertion of Endotracheal Airway into Trachea, Via Natural or Artificial Opening (ICD-10-PCS; principal; 2017-04-02)
PROC: 5A09357 Assistance with Respiratory Ventilation, Less than 24 Consecutive Hours, Continuous Positive Airway Pressure (ICD-10-PCS; principal; 2017-04-02)
PROC: 5A1955Z Respiratory Ventilation, Greater than 96 Consecutive Hours (ICD-10-PCS; principal; 2017-04-02)
PROC: 0W9B3ZZ Drainage of Left Pleural Cavity, Percutaneous Approach (ICD-10-PCS; 2017-04-11)
PROC: 5A09357 Assistance with Respiratory Ventilation, Less than 24 Consecutive Hours, Continuous Positive Airway Pressure (ICD-10-PCS; 2017-04-17)
PROC: 0W993ZZ Drainage of Right Pleural Cavity, Percutaneous Approach (ICD-10-PCS; 2017-04-18)
PROC: 5A09357 Assistance with Respiratory Ventilation, Less than 24 Consecutive Hours, Continuous Positive Airway Pressure (ICD-10-PCS; 2017-04-18)
PROC: B5181ZA Fluoroscopy of Superior Vena Cava using Low Osmolar Contrast, Guidance (ICD-10-PCS; 2017-04-22)
PROC: 0W9B3ZZ Drainage of Left Pleural Cavity, Percutaneous Approach (ICD-10-PCS; 2017-04-22)
PROC: 02HV33Z Insertion of Infusion Device into Superior Vena Cava, Percutaneous Approach (ICD-10-PCS; 2017-04-22)
DX: A41.9 Sepsis, unspecified organism (principal); R57.0 Cardiogenic shock; J96.01 Acute respiratory failure with hypoxia; I26.99 Other pulmonary embolism without acute cor pulmonale; G93.40 Encephalopathy, unspecified; J15.211 Pneumonia due to Methicillin susceptible Staphylococcus aureus; R04.2 Hemoptysis; I48.92 Unspecified atrial flutter; E87.0 Hyperosmolality and hypernatremia; E44.0 Moderate protein-calorie malnutrition; N17.9 Acute kidney failure, unspecified; I50.20 Unspecified systolic (congestive) heart failure; K56.7 Ileus, unspecified; I31.3 Pericardial effusion (noninflammatory); R65.20 Severe sepsis without septic shock; I25.10 Atherosclerotic heart disease of native coronary artery without angina pectoris; I48.91 Unspecified atrial fibrillation; D72.829 Elevated white blood cell count, unspecified; E78.5 Hyperlipidemia, unspecified; F17.210 Nicotine dependence, cigarettes, uncomplicated; I25.5 Ischemic cardiomyopathy; E11.65 Type 2 diabetes mellitus with hyperglycemia; I95.9 Hypotension, unspecified; G72.89 Other specified myopathies; E87.6 Hypokalemia; E83.39 Other disorders of phosphorus metabolism; G89.29 Other chronic pain; M54.9 Dorsalgia, unspecified; R13.10 Dysphagia, unspecified; E66.01 Morbid (severe) obesity due to excess calories; Z28.21 Immunization not carried out because of patient refusal; Z88.8 Allergy status to other drugs, medicaments and biological substances; Z86.711 Personal history of pulmonary embolism; Z86.718 Personal history of other venous thrombosis and embolism; Z68.38 Body mass index [BMI] 38.0-38.9, adult; Z79.01 Long term (current) use of anticoagulants; Z79.899 Other long term (current) drug therapy
CPT/HCPCS: 10078; 10081; 27000

== ENCOUNTER 2017-04-22 14:50 | Inpatient (IN) | payer BC, OTHER ==
[~2017-04-22] VITALS: Ht 185.4 cm; Wt 130.1 kg
--- NOTE | ~2017-04-22 | PLAN ---
[facility] [place] [address] REHAB UNIT PLAN OF CARE Name: MARILEE SALCEDO Room #: 513-P ADM IN M.R.#: [id number] Admission: 04/22/17 Attend Phys: Bubba Mcnulty MD Discharge: Date of : 62 Report #: [id number] THIS REPORT FOR: //name// CC: Fei Mcnulty DATE OF SERVICE: 04/24/2017 SUBJECTIVE: The patient is seen back today in followup. He was in no distress. He is on nasal prong O2. No calf swelling. He has a definite delay in his cognitive processing and in his responses, but does follow basic 1-step commands. Transfers are mod assist with gait, min assist to 100 feet with a front-wheeled walker. In occupational therapy, lower body dressing is min assist. In speech therapy, he has mild comprehensive deficits. He is on a mechanical soft diet with honey thickened liquids with his dysphagia, moderate memory deficits with mild to moderate cognitive deficits. ASSESSMENT: 1. Critical illness myopathy. 2. Encephalopathy, multifactorial, likely hypoxic plus metabolic which appears to be improving. 3. Severe sepsis. 4. Respiratory failure with methicillin-sensitive Staphylococcus aureus pneumonia. 5. Atrial flutter. 6. Pleural effusion with multiple thoracenteses, now status post PleurX catheter. 7. History of large bilateral saddle embolus and left lower extremity deep venous thrombosis. He has IVC filter in place. 8. Hematuria. 9. Coronary artery disease with recent ST elevation myocardial infarction and stent placement. 10. Ischemic cardiomyopathy. 11. Exogenous obesity. 12. Chronic anticoagulation. PLAN: The overall plan of care is based on the preadmission screen, post-admission physician evaluation and information garnered from therapy assessments. 1. Estimated length of stay is probably at least 2-3 weeks pending his overall progress and medical stability issues. 2. Medical prognosis is reasonably good. 3. Anticipated interventions includes the interdisciplinary acute inpatient rehabilitation program with goal of maximizing the patient's functional independence, so that he can hopefully return back to his prior living situation. [address] [address] REHAB UNIT PLAN OF CARE Name: MARILEE SALCEDO Room #: 513-P [facility] IN M.R.#: [id number] Admission: 04/22/17 Attend Phys: Bubba Mcnulty MD Discharge: Date of : 62 Report #: [id number] 4. Anticipated functional outcomes would be for the patient to become modified independent with transfers, mobility, ADLs, cognitive issues, swallowing, so he can return back to the home setting. 5. Discharge destination would be back to his home in [place], [place] with his significant other. 6. Expected therapy by discipline includes PT, OT and speech 1 hour per day each five days a week throughout the duration of the acute inpatient rehabilitation stay. ADDENDUM: The patient has not had any cardiac pacemaker and thus should not have a contraindication for vital stimulation per speech therapy. I went ahead and entered the order. <ELECTRONICALLY SIGNED> By: Bubba Mcnulty MD 05/04/17 1226 1016 2336 Bubba Mcnulty MD /[facility]
--- NOTE | ~2017-04-22 | EKG ---
[address] [address] ELECTROCARDIOGRAM REPORT Name: MARILEE SALCEDO Room #: 513- ADM IN M.R.#: [id number] Admission: 04/22/17 Attend Phys: Bubba Mcnulty MD Discharge: Date of : 62 Report #: [id number] THIS REPORT FOR: //name// [facility] Test Date: 2017-04-29 Test Time: 07:57:42 Pat Name: MARILEE SALCEDO Department: Room: 513 P Gender: M Oil Gauger: Jenny PALACIOS : 1960 Requested By: Finn Almeida Order Number: [id number] MD: Darrell Jiménez Measurements Intervals Mooers Rate: 73 P: NH: QRS: 7 QRSD: 132 T: 209 QT: 365 QTc: 403 Interpretive Statements Atrial fibrillation Nonspecific intraventricular conduction delay Nonspecific T abnormalities, diffuse leads Compared to ECG 04/04/2017 14:31:43 Electronically Signed On 04-29-2017 8:15:57 [employer]PER[employer] by Darrell Jiménez [email or web address] <ELECTRONICALLY SIGNED> By: Darrell Jiménez MD 04/29/17 0815 0757 075 Darrell Jiménez MD /[facility]
--- NOTE | ~2017-04-22 | H ---
[facility] [place] [address] HISTORY AND PHYSICAL Name: MARILEE SALCEDO Room #: 513-P ADM IN M.R.#: [id number] Admission: 04/22/17 Attend Phys: Bubba Mcnulty MD Discharge: Date of : 62 Report #: [id number] THIS REPORT FOR: //name// CC: Fei Mcnulty DATE OF SERVICE: 04/22/2017 HISTORY AND PHYSICAL AND POST ADMISSION PHYSICIAN EVALUATION HISTORY OF PRESENT ILLNESS: This is a 56-year-old white male who had an out of hospital cardiac arrest, on 03/15/2017 he was hospitalized at [facility]. His course was complicated by respiratory failure. He was noted to have pericardial effusion, DVT with PE with IVC filter, severe cardiomyopathy. [facility] but while he was there, he started running a fever with worsening shortness of breath. He is readmitted to [facility]. He was noted to have respiratory failure with pneumonia, was reintubated from 04/02/2017 to 04/09/2017. He underwent thoracentesis of the left side. He has had atrial flutter, treated with digoxin and amiodarone. He was noted to have an ischemic cardiomyopathy with an ejection fraction of 20%. He has a history of a large saddle bilateral emboli and left lower extremity DVT and has an IVC filter in place. He was treated with Lovenox, but had some problems with hematuria and had a thoracentesis. He was noted to have MSSA pneumonia. He had dysphagia with speech therapy involvement and continues on honey-thickened liquid diet. He did have a Dobhoff feeding tube in place for a while, which was subsequently removed. He was noted to have a multifactorial encephalopathy thought to be part metabolic and part hypoxic from the original out of hospital cardiac arrest, which was noted to be overall improving. He was noted to have severe sepsis. He has been followed regarding his pleural effusions with a large left greater than right effusion and has had four thoracenteses. He underwent a PleurX catheter just prior to his admission to the inpatient rehabilitation camacho. He has not been admitted for acute in-hospital inpatient rehabilitation. PAST MEDICAL HISTORY: Includes the above. He has a history of coronary artery disease, COPD, ischemic cardiomyopathy, history of DVT, pulmonary embolism, and chronic anticoagulation. PAST SURGICAL HISTORY: As noted above. ALLERGIES: CAMPHOR, MENTHOL, PHENOL, SALICYLIC ACID. MEDICATIONS: Please see the full medication listing. Each of these was individually reconciled and includes his vitamins and herbals and supplements. SOCIAL HISTORY: Lives in [place], [place] with a female significant other, [address] [place] [address] HISTORY AND PHYSICAL Name: MARILEE SALCEDO Room #: 513-P [facility] IN M.R.#: [id number] Admission: 04/22/17 Attend Phys: Bubba Mcnulty MD Discharge: Date of : 62 Report #: [id number] steps in. He did not utilize gait aids previously. There are 14 inside steps. 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 Significant other apparently works outside the home. REVIEW OF SYSTEMS: No current complaints of chest pain, had just had the PleurX catheter removed with some discomfort as expected. No abdominal discomfort. No focal extremity pain complaints. Complains of being overall weak, but feels he is starting to get better. PHYSICAL EXAMINATION: GENERAL: A 56-year-old male in no obvious distress. VITAL SIGNS: Last recorded temperature 97.5, pulse 68, respirations 18, blood pressure is 104/70. The patient was seen earlier. He has been on 2 liters nasal cannula. He is alert. There is latency to his responses. We will follow basic 1 step commands. Appears to have some decreased attention. HEENT: Facies are symmetric. CHEST: Thoracentesis tube, left upper back. Otherwise, sounded reasonably clear with occasional nonproductive cough. CARDIOVASCULAR: Sounded regular rate and rhythm. ABDOMEN: Obese, bowel sounds positive, nontender. RECTAL: He has the [place], otherwise deferred. EXTREMITIES: Functional range of motion of both upper extremities. Strength is a grade 4- to 3+/5. DTRs are 1. Lower extremities, he does have some diffuse edema 1-2+. Functional range of motion with strength grade 4-/5. DTRs are 1. He has been mod assist with basic transfers with gait having been around min assist short distances prior to admission to the rehab [facility]. ASSESSMENT: A 56-year-old white male with the following problem list: 1. Critical illness myopathy. 2. Encephalopathy, multifactorial, likely hypoxic plus metabolic which appears to be improving. 3. Severe sepsis. 4. Respiratory failure with methicillin sensitive Staphylococcus aureus pneumonia. 5. Atrial flutter. 6. Pleural effusion with multiple thoracenteses now status post PleurX catheter. 7. History of large bilateral saddle embolus and left lower extremity deep venous thrombosis. Has IVC filter in place. 8. Hematuria. 9. Coronary artery disease with recent ST-elevation myocardial infarction and stent placement. 10. Ischemic cardiomyopathy. 11. Exogenous Obesity. 13. Chronic anticoagulation. [facility] [address] [place] [address] HISTORY AND PHYSICAL Name: MARILEE SALCEDO Room #: 513-P ADM IN M.R.#: [id number] Admission: 04/22/17 Attend Phys: Bubba Mcnulty MD Discharge: Date of : 62 Report #: [id number] PLAN: The patient is admitted for acute in-hospital inpatient rehabilitation. From a post-admission physician evaluation perspective, there are no relevant changes since the preadmission screening. Please see the above review of prior and current medical and functional conditions and comorbidities. Please see the patient's previous and current functional status. As far as risk of complications, the patient has multiple medical comorbidities as noted above and we will need to have the nutrition consultant physicians, continue to follow. Initial plan of care involves the interdisciplinary acute inpatient rehabilitation program with goal of maximizing his functional independence that he can hopefully return back to his prior living situation. Measurable functional goals would be for the patient to become modified independent with transfers, mobility, ADLs and improved cognition, so that he can return back to the home setting. Prognosis is reasonably good. Would anticipate a length of stay of probably at least a couple of weeks and possibly more. We will need to see how he does. Potential barriers would include his multiple medical comorbidities and decreased functional status. The patient meets diagnostic criteria for an acute in-hospital inpatient rehabilitation stay. He meets medical necessity criteria with his considerable medical complexity. He does have the tolerance for therapies and has appropriate discharge goals back to the home setting. <ELECTRONICALLY SIGNED> By: Bubba Mcnulty MD 04/23/17 1442 1027 1109 Bubba Mcnulty MD /[facility]
--- NOTE | ~2017-04-22 | HC ---
[facility] [place] [address] CONSULTATION Name: MARILEE SALCEDO Room #: 513-P ADM IN M.R.#: [id number] Admission: 04/22/17 Attend Phys: Bubba Mcnulty MD Discharge: Date of : 62 Report #: [id number] THIS REPORT FOR: //name// CC: Fei Mcnulty DATE OF SERVICE: 04/26/2017 NEUROBEHAVIORAL STATUS EXAM ATTENDING PHYSICIAN: Bubba Mcnulty M.D. 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 His diagnoses on admission to rehab includes encephalopathy that is multifactorial, likely hypoxic plus metabolic, severe sepsis, respiratory failure with methicillin-sensitive Staphylococcus aureus pneumonia, atrial flutter, pleural effusion with multiple thoracenteses and status post PleurX catheter, history of large bilateral saddle embolus with left lower extremity deep venous thrombosis with IVC filter in place, hematuria, coronary artery disease with a recent ST-elevation myocardial infarction and stent placement, ischemic cardiomyopathy, exogenous obesity, chronic anticoagulation. A complete description of his medical condition and history along with medications can be found in his medical record. Neuropsychological consultation was requested to provide assistance in the assessment of cognitive and emotional status and to provide recommendations and services. Prior to this most recent medical event, he was independent with instrumental activities of daily living and living at his home with his . 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 He is reported to have a longstanding history of dyslexia and had a great deal of problems with reading and writing prior to his admission. There is no reported history of alcohol or drug abuse. He also does not have a history of anxiety or depression. TECHNIQUES UTILIZED: Clinical interview, review of medical records, staff consultation and behavioral observation, mini-mental status exam 2 standard version, clock drawing and digits forward and digits backward test. EXAMINATION FINDINGS: The patient was alert and cooperative with the assessment. His mood appears depressed. He was able to accurately describe the reason for his hospitalization. There is no evidence of aphasia. He does not [facility] [address] [place] [address] CONSULTATION Name: MARILEE SALCEDO Room #: 513-P [facility] IN .R.#: [id number] Admission: 04/22/17 Attend Phys: Bubba Mcnulty MD Discharge: Date of : 62 Report #: [id number] report auditory or visual hallucinations. There is no evidence of thought disorder. He describes his symptoms to primarily include tiredness and fatigue with decreased endurance. Anxiety and depression is also reported. He does not describe difficulty with memory or word finding. His indicates that the patient has dyslexia and reading and writing is very poor. His performance on the MMSE 2 brief version was within normal limits with a raw score of 14 of 16. He was 3/3 for initial registration, 5/5 for orientation to time, 4/[address] and 2/3 for immediate recall of 3 items after a brief time delay and distraction. His performance deteriorated on the MMSE 2 standard version to a raw score of 23 of 30, which is a T score of 31 and in the mild to moderate range of impairment. He was 0/5 for serial 7's, 2/2 for naming, 1/1 for repetition, 3/3 for comprehension, 1/1 for being able to read and follow a single command and 1/1 for being able to write a sentence. He also was able to copy a simple geometric design. His performance and clock drawing was generally within normal limits. Digit span forward was in the average range with a raw score of 8, Z-score of -0.08 and scaled score of 8. Performance in digit span backward was extremely low with a raw score of 0. The patient is alert and oriented. He is showing subtle to mild cognitive deficits in specific areas. Moderate to severe deficits in working memory are suggested. DIAGNOSTIC IMPRESSION: Neurocognitive disorder, due to medical condition and hypoxia -- without behavior disorder -- extent to be determined - likely mild Unspecified depressive disorder with anxiety. RECOMMENDATIONS: Continued treatment program for depression and variability in cognition. A structured and supervised environmental program to compensate for deficits in sustained concentration and working memory are indicated. Cognitive rehabilitation should primarily focus on focus on working memory and attention/concentration will be of benefit. [address] [address] CONSULTATION Name: MARILEE SALCEDO Room #: 513-P [facility] IN M.R.#: [id number] Admission: 04/22/17 Attend Phys: Bubba Mcnulty MD Discharge: Date of : 62 Report #: [id number] Thank you very much for allowing me to provide the consultation on this patient. <ELECTRONICALLY SIGNED> By: Quincy Casarez, PhD 05/03/17 1235 1244 0427 Quincy Casarez, PhD /nt
[~2017-04-22 14:50] MED LIST: ALBUTEROL2.5 MG/31 INH; ASPIR 8181 M1 PO; ATIVAN0.5 MG PO; ATORVASTATIN CA40 MG PO; AUGMENTIN 875-1 EACH PO; CARDIZEM30 MG IV; CARVEDILOL3.125 MG PO; COZAAR 50 MG TA50 M1 PO; DEMADEX20 MG PO; DUONEB 2.5-0.5 M3 ML INH; ELIQUIS5 MG PO; GLIMEPIRIDE1 MG PO; HALDOL5 MG/1 ML IV; LACTULOSE20 GM/30 M PER TUBE; LASIX 10 MG/10 MG/M1 IV PUSH; MIRALAX17 GM PO; OXYCODONE HCL 55 MG PO; PACERONE 200 M200 M1 PO; PANTOPRAZOLE SO40 M1 PO; PLAVIX 75 MG TA75 M1 PO; SERTRALINE HCL50 MG PO; VANCO 1 GR1 GM/250 M IV; ZOSYN 3.3753.375 GM IV
[2017-04-22 16:40] VITALS: BP 106/69
[2017-04-22 19:20] VITALS: BP 99/72
[2017-04-23 06:19] LABS: HEMATOCRIT 33.8 % (42.0-52.0); HEMOGLOBIN 11.1 gm/dL (14.0-18.0); MCH 30.1 pg (26.0-34.0); MCHC 32.7 g/dL (28.0-37.0); MCV 91.8 fL (80.0-100.0); RBC 3.68 mil/uL (4.50-6.00); RDW 15.8 % (10.5-14.5); WBC 8.6 thou/uL (4.0-11.0)
[2017-04-23 06:28] LABS: CALCIUM 8.4 mg/dL (8.5-10.1); CREATININE 0.7 mg/dL (0.7-1.3); POTASSIUM 3.3 mmol/L (3.5-5.1)
[2017-04-23 08:45] VITALS: BP 104/70
[2017-04-23 19:40] VITALS: BP 87/57
[2017-04-24 05:05] VITALS: BP 92/61
[2017-04-24 06:17] LABS: CALCIUM 8.8 mg/dL (8.5-10.1); CREATININE 0.8 mg/dL (0.7-1.3); POTASSIUM 3.5 mmol/L (3.5-5.1)
[2017-04-24 07:59] VITALS: BP 103/72
[2017-04-24 20:19] VITALS: BP 95/61
[2017-04-25 06:38] LABS: CALCIUM 8.9 mg/dL (8.5-10.1); CREATININE 0.8 mg/dL (0.7-1.3); POTASSIUM 3.5 mmol/L (3.5-5.1)
[2017-04-25 08:35] VITALS: BP 102/62
[2017-04-25 16:55] VITALS: BP 103/60
[2017-04-25 20:30] VITALS: BP 100/63
[2017-04-26 10:21] VITALS: BP 100/65
[2017-04-26 20:15] VITALS: BP 104/56
[2017-04-27 04:37] LABS: POTASSIUM 3.9 mmol/L (3.5-5.1)
[2017-04-27 04:38] LABS: CALCIUM 8.3 mg/dL (8.5-10.1); CREATININE 0.8 mg/dL (0.7-1.3)
[2017-04-27 07:45] VITALS: BP 109/78
[2017-04-27 19:45] VITALS: BP 95/62
[2017-04-28 04:56] LABS: CALCIUM 8.4 mg/dL (8.5-10.1); CREATININE 0.8 mg/dL (0.7-1.3); POTASSIUM 3.6 mmol/L (3.5-5.1)
[2017-04-28 08:00] VITALS: BP 95/67
[2017-04-28 17:23] VITALS: BP 100/68
[2017-04-28 19:00] VITALS: BP 110/75
[2017-04-29 07:10] VITALS: BP 116/79
[2017-04-29 09:17] VITALS: BP 111/72
[2017-04-29 19:45] VITALS: BP 86/55
[2017-04-30 08:00] VITALS: BP 105/72
[2017-04-30 20:23] VITALS: BP 102/65
[2017-05-01 04:05] LABS: CALCIUM 8.5 mg/dL (8.5-10.1); CREATININE 0.8 mg/dL (0.7-1.3); POTASSIUM 3.7 mmol/L (3.5-5.1)
[2017-05-01 08:00] VITALS: BP 110/81
[2017-05-01 19:40] VITALS: BP 91/62
[2017-05-02 07:59] VITALS: BP 90/60
[2017-05-02 20:23] VITALS: BP 101/62
[2017-05-03 08:00] VITALS: BP 113/79
[2017-05-03 19:55] VITALS: BP 109/79
[2017-05-04 04:15] LABS: HEMATOCRIT 30.7 % (42.0-52.0); HEMOGLOBIN 10.3 gm/dL (14.0-18.0); MCH 30.7 pg (26.0-34.0); MCHC 33.4 g/dL (28.0-37.0); MCV 91.8 fL (80.0-100.0); RBC 3.35 mil/uL (4.50-6.00); WBC 7.3 thou/uL (4.0-11.0)
[2017-05-04 04:22] LABS: CALCIUM 8.5 mg/dL (8.5-10.1); CREATININE 0.9 mg/dL (0.7-1.3); POTASSIUM 3.7 mmol/L (3.5-5.1)
[2017-05-04 08:10] VITALS: BP 121/82
[2017-05-04 20:45] VITALS: BP 107/69
[2017-05-05 08:00] VITALS: BP 128/76
[2017-05-05 19:30] VITALS: BP 93/62
[2017-05-06 07:53] VITALS: BP 105/72
[2017-05-06 20:30] VITALS: BP 100/73
[2017-05-07 08:15] VITALS: BP 104/78
[2017-05-07] MEDS ORDERED: PLAVIX 75 MG TA75 M1 PO (10:08)
[2017-05-07] MEDS ORDERED: ELIQUIS5 MG PO ×2 (10:08→10:22)
[2017-05-07] MEDS ORDERED: ATORVASTATIN CA40 MG PO ×2 (10:08→10:23)
[2017-05-07] MEDS ORDERED: CARVEDILOL3.125 MG PO ×2 (10:09→10:24)
[2017-05-07] MEDS ORDERED: COZAAR 50 MG TA50 M1 PO ×2 (10:09→10:27)
[2017-05-07] MEDS ORDERED: OXYCODONE HCL 55 MG PO ×2 (10:10→10:25)
[2017-05-07] MEDS ORDERED: ALDACTONE25 MG PO (10:10)
[2017-05-07] MEDS ORDERED: ZOLOFT100 MG PO (10:10)
[2017-05-07] MEDS ORDERED: DEMADEX20 MG PO ×2 (10:11→10:25)
[2017-05-07] MEDS ORDERED: GLIMEPIRIDE1 MG PO ×2 (10:11→10:26)
[2017-05-07] MEDS ORDERED: CLOPIDOGREL75 MG PO (10:23)
[2017-05-07 12:19] VITALS: BP 104/78
[2017-05-07 13:27] VITALS: BP 104/78
[2017-07-25] MEDS ORDERED: AMARYL4 MG PO (11:09)
[2017-07-31] MEDS ORDERED: COZAAR 25 MG TA25 M1 PO (08:29)
[2017-07-31] MEDS ORDERED: PACERONE200 MG PO (08:29)
[2017-07-31] MEDS ORDERED: CARVEDILOL3.125 MG PO (08:30)
[2017-07-31] MEDS ORDERED: LANTUS100 UNIT/M SUBQ (12:04)
[2017-07-31] MEDS ORDERED: NOVOLOG100 UNIT/1 SUBQ (12:05)
== END 2017-05-07 14:30 | disposition home health service (06) | DRG 91 ==
LOC: TBA 17:49 → ENTRNSPT 05-07 14:15 → EDTRNSPTSTS 05-07 14:20
PROVIDERS: Internal Medicine Cardiovascular Disease; Internal Medicine Geriatric Medicine; Physical Medicine & Rehabilitation
DX: G72.81 Critical illness myopathy (principal); J15.211 Pneumonia due to Methicillin susceptible Staphylococcus aureus; G93.40 Encephalopathy, unspecified; J96.91 Respiratory failure, unspecified with hypoxia; I31.3 Pericardial effusion (noninflammatory); I48.92 Unspecified atrial flutter; I50.20 Unspecified systolic (congestive) heart failure; E87.0 Hyperosmolality and hypernatremia; I25.5 Ischemic cardiomyopathy; I25.10 Atherosclerotic heart disease of native coronary artery without angina pectoris; J44.9 Chronic obstructive pulmonary disease, unspecified; R31.9 Hematuria, unspecified; E66.09 Other obesity due to excess calories; G47.33 Obstructive sleep apnea (adult) (pediatric); E11.9 Type 2 diabetes mellitus without complications; I48.91 Unspecified atrial fibrillation; R13.10 Dysphagia, unspecified; Z86.711 Personal history of pulmonary embolism; Z86.718 Personal history of other venous thrombosis and embolism; Z79.01 Long term (current) use of anticoagulants; Z88.8 Allergy status to other drugs, medicaments and biological substances; I25.2 Old myocardial infarction; Z95.5 Presence of coronary angioplasty implant and graft; Z68.37 Body mass index [BMI] 37.0-37.9, adult
CPT/HCPCS: 10112

== ENCOUNTER → 2017-05-21 | Outpatient (CLI) | payer BC, OTHER ==
[~2017-05-21] MED LIST changes: +ALDACTONE25 MG PO; +AMARYL4 MG PO; +CLOPIDOGREL75 MG PO; +COZAAR 25 MG TA25 M1 PO; +LANTUS100 UNIT/M SUBQ; +NOVOLOG100 UNIT/1 SUBQ; +PACERONE200 MG PO; +ZOLOFT100 MG PO
== END ==
LOC: RAD 10:03
DX: J90 Pleural effusion, not elsewhere classified (principal)

== ENCOUNTER → 2017-06-17 | Outpatient (CLI) | payer BC, OTHER | LOC: RAD 10:35 | DX: J90 Pleural effusion, not elsewhere classified (principal) ==

== ENCOUNTER → 2017-06-18 | Outpatient (CLI) | payer BC, OTHER ==
--- NOTE | ~2017-06-18 | 2DMMODE ---
[facility] [address] [place] [address] 2 D/M-MODE ECHOCARDIOGRAM Name: MARILEE SALCEDO III Room #: REG [facility]#: [id number] Admission: 06/18/17 Attend Phys: Monty Adan MD Discharge: Date of : 62 Date of Service: 06/18/17 1605 Report #: [id number] THIS REPORT FOR: //name// APPROVED REPORT Study performed: 06/18/2017 14:36:52 EXAM: Comprehensive 2D, Doppler, and color-flow Echocardiogram Patient Location: Out-Patient Room #: Echo lab Status: routine BSA: 2.49 HR: 87 bpm BP: 108/82 mmHg Other Information Study Quality: Adequate Indications Cardiomyopathy 2D Dimensions LVEF(%): 25.35 (>50%) IVSd: 9.83 (7-11mm) LVDd: 54.27 mm PWd: 8.96 (7-11mm) LVDs: 47.85 (25-40mm) Aortic Root: 34.60 mm IVC: 23.00 mm Duenas's LVEF: 25.35 % Tricuspid Valve TR Peak Cedric.: 2.96 m/s TR Peak Gr.: 34.94 mmHg PA Pressure: 45.00 mmHg Left Ventricle Left ventricle is at the upper limits of normal. There is severe global hypokinesis of the left ventricle. There is normal left ventricular wall thickness. Left ventricular ejection fraction is severely decreased. LVEF is 20-25%. Right Ventricle Right ventricle is dilated. Right ventricle is hypokinetic. [facility] [address] [place] [address] 2 D/M-MODE ECHOCARDIOGRAM Name: MARILEE SALCEDO III Room #: REG ALEX OliveiraAlena#: [id number] Admission: 06/18/17 Attend Phys: Monty Adan MD Discharge: Date of : 62 Date of Service: 06/18/17 1605 Report #: [id number] Atria Left atrium is dilated. Right atrium is dilated. Aortic Valve The aortic valve is normal in structure. Mild aortic regurgitation. There is no aortic valvular stenosis. Mitral Valve The mitral valve is normal in structure. Mild mitral regurgitation. No evidence of mitral valve stenosis. Tricuspid Valve The tricuspid valve is normal in structure. There is mild tricuspid regurgitation. Estimated PAP 45 mmHg. There is moderate pulmonary hypertension. Great Vessels The aortic root is normal in size. IVC is dilated and collapses <50% with inspiration. Pericardium There is no pericardial effusion. <Conclusion> Left ventricle is at the upper limits of normal. There is normal left ventricular wall thickness. Left ventricular ejection fraction is severely decreased. Right ventricle is dilated. Right ventricle is hypokinetic. Left atrium is dilated. Mild aortic regurgitation. Mild mitral regurgitation. There is mild tricuspid regurgitation. Estimated PAP 45 mmHg. <ELECTRONICALLY SIGNED> By: Monty Adan MD 06/18/17 1605 04 04 Monty Adan MD /INF
== END ==
LOC: CV
DX: I08.3 Combined rheumatic disorders of mitral, aortic and tricuspid valves (principal); I42.9 Cardiomyopathy, unspecified

== ENCOUNTER → 2017-07-15 | Outpatient (CLI) | payer BC, OTHER ==
[~2017-07-15] MED LIST changes: -AMARYL4 MG PO; -COZAAR 25 MG TA25 M1 PO; -LANTUS100 UNIT/M SUBQ; -NOVOLOG100 UNIT/1 SUBQ; -PACERONE200 MG PO
== END ==
LOC: RAD 10:29
DX: J90 Pleural effusion, not elsewhere classified (principal)

== ENCOUNTER 2017-08-24 11:09 | Inpatient (IN) | payer BC, OTHER ==
[~2017-08-24] VITALS: Ht 182.9 cm; Wt 150.2 kg
--- NOTE | ~2017-08-24 | PATH ---
[facility] [address] [place] [address] PATHOLOGY RPT PROCEDURE Name: MARILEE SALCEDO III Room #: 201-P ADM IN M.R.#: [id number] Admission: 08/24/17 Date of : 62 Discharge: Report #: [id number] Path Case #: [id number] Note [facility] Accession Number: [id number] TESTS RESULT FLAG UNITS REF RANGE LAB Clinician Provided Cytology Information No. of containers..01 Other (Miscellaneous) Source: 01 RIGHT PLEURAL FLUID DIAGNOSIS: 02 RIGHT PLEURAL FLUID NEGATIVE FOR MALIGNANT CELLS. MESOTHELIAL CELLS ARE PRESENT. ABUNDANT MACROPHAGES AND A FEW INFLAMMATORY CELLS. INTERPRETATION INCLUDES CELL BLOCK PREPARATION. Comment: Immunohistochemical stains are performed on the cell block.The mesothelial cells are reactive to Calretinin and Desmin stains supporting reactive mesothelial cells. Most of the cells are reactive to CD68 consistent with macrophages. BerEP4 is nonreactive. Signed out by: 02 Margie Sauceda MD, Pathologist NPI- [id number] Performed by: 03 Lissett Larsen, Cable Cutter And Swager ([facility]) Gross description: 01 10 ML, ORANGE YELLOW, CLOUDY /LCS FLAG LEGEND: L-Low Normal,H-High Normal,LL-Alert Low,HH-Alert High <-Panic Low,>-Panic High,A-Abnormal,AA-Critical Abnormal Performed at: [address] [place] [address] Matthew Rodrigues MD, [address] [address] Margie Sauceda MD, [address] [address] Quinn Breen MD, Performed at: [address], [place], [place] [id number] [address] [address] PATHOLOGY RPT PROCEDURE Name: MARILEE SALCEDO ANDRIA III Room #: 201-P [facility] IN Wanda.RAlena#: [id number] Admission: 08/24/17 Date of : 62 Discharge: Report #: [id number] Path Case #: [id number] MD Matthew Rodrigues [place] Phone: [phone]
--- NOTE | ~2017-08-24 | P ---
[facility] [place] [address] PROCEDURE REPORT Name: MARILEE SALCEDO [facility] Room #: 201-P [facility] IN M.R.#: [id number] Admission: 08/24/17 Attend Phys: Bubba Bautista MD Discharge: Date of : 62 Report #: [id number] THIS REPORT FOR: //name// CC: Bubba Almeida DATE OF SERVICE: 09/18/2017 PROCEDURE: Implantable cardioverter defibrillator implantation. PREOPERATIVE DIAGNOSES: 1. Ischemic cardiomyopathy. 2. [place] [employer] Association functional class 3. 3. Atrial flutter. HISTORY: The patient is a 57-year-old male who had a ST-segment elevation [place] back in March with an EF of 20%. He was on optimal medical therapy for 3 months. His EF was still less than 35%. He has class 3 heart failure as well as typical atrial flutter and has been hospitalized for acute congestive heart failure. He has also had issues with recurring pleural effusions that are reaccumulating. He underwent repeat thoracentesis on Thursday and is feeling better and is here for attempt at ICD implantation for primary prevention of sudden cardiac . ANESTHESIA: The patient underwent MAC anesthesia with no anesthesia related complications. He did use BiPAP during the procedure and was given combinations of ketamine and propofol. DESCRIPTION OF PROCEDURE: The patient underwent informed consent. We discussed the details of the procedure including the risks, which include, but not limited to bleeding, infection, vascular damage, cardiac perforation and pneumothorax. He understood these risks and is willing to proceed. As such, he was brought to the EP laboratory in fasting and unsedated state, prepped and draped in a sterile fashion, received IV vancomycin for antibiotic prophylaxis and underwent a venogram showing patency of the left axillary vein. Next, I injected lidocaine below the level of the left clavicle. Incision was made. A pocket was created over the prepectoral fascia and access was obtained twice the left axillary vein using the extrathoracic approach with sheaths positioned using the modified Seldinger technique. Next, the dual coil ICD lead was placed into the right ventricular apex. This was actually quite challenging due to the large right atrial dimensions. Eventually, I was able to cross the tricuspid valve and positioned the lead into an apical position with adequate pacing and sensing thresholds. Next, I attempted to position an atrial lead. Again, he had quite a large right atrium and standard J-tipped stylets. I would not easily engage the right atrial appendage. The lead actually dislodged twice. I therefore [facility] [address] [place] [address] PROCEDURE REPORT Name: MARILEE SALCEDO [facility] Room #: [facility] IN ..#: [id number] Admission: 08/24/17 Attend Phys: Bubba Bautista MD Discharge: Date of : 62 Report #: [id number] placed the lead in a very anterior lateral position. At this site, there was adequate capture as we entrained his atrial flutter. He remained in atrial flutter. I did pace at high outputs 10 volts and there was no phrenic nerve capture at this spot. As such, both leads were sutured to the prepectoral fascia. The device was connected to the leads and the pocket was irrigated with vancomycin. I closed the pocket in 3 layers using 2-0 for the deep layer, 3-0 for the mid layer and 4-0 for the subcuticular layer. Surgical glue was placed to the outer skin layer. The patient awoke neurologically and hemodynamically intact. No complications and no significant bleeding. The implanted device was a [employer] model # [id number], serial #[id number]. The atrial lead was a [employer], model #2088TC, 52 cm, serial #[id number] with atrial flutter waves of 3.4 millivolts and a pacing impedance of 410 ohms. The RV lead was a [employer] model #7120Q, 65 cm, serial #[id number] with R waves of 9.7 millivolts, pacing impedance of 580 ohms and a pacing threshold of 0.5 volts at 0.5 milliseconds. The device was programmed to the DDDR 60-130 mode. The device was also programmed to mode switch given that he is in atrial flutter. The VT zone was set at 180-220 beats per minute with 3 rounds of burst followed by 3 rounds of ramp followed by max output shocks with all discriminators enabled. The VF zone was set at greater than 220 beats per minute with ATP while charging followed by max output shocks. CONCLUSIONS: 1. Successful implantable cardioverter defibrillator implantation. 2. Satisfactory atrial and ventricular pacing and sensing thresholds. By: 1516 0027 Darrell Jiménez MD /nt
--- NOTE | ~2017-08-24 | D ---
[facility] [place] [address] DISCHARGE SUMMARY Name: MARILEE SALCEDO III Room #: 201-P [facility] IN M.R.#: [id number] Admission: 08/24/17 Attend Phys: Bubba Bautista MD Discharge: 09/21/17 Date of : 62 Report #: [id number] THIS REPORT FOR: //name// CC: Bubba Almeida DATE OF SERVICE: 09/21/2017 FINAL DIAGNOSES: 1. Acute on chronic diastolic congestive heart failure. 2. Recurrent pleural effusions. 3. Hematoma of the left chest. 4. Ischemic cardiomyopathy, ejection fraction 20%. 5. Coronary artery disease. 6. Acute kidney injury, resolved. 7. Diabetes type 2. 8. Morbid obesity. 9. Anemia due to acute blood loss. 10. Severe protein-calorie malnutrition. 11. Atrial flutter. HOSPITAL COURSE: The patient is admitted with shortness of breath, hypoxia related to underlying ischemic cardiomyopathy, congestive heart failure and pleural effusions. He previously had a PleurX catheter in the left chest, which was not draining for 2 days prior to admission. He was only able to drain once here. There was concern that it may be obstructed and Interventional Radiology attempted TPA to open the tube. This was unsuccessful and the PleurX catheter was changed. Unfortunately, due to anticoagulation, he had some bleeding and hematoma into the left chest wall and there was a concern of probable left hemothorax. Cardiothoracic Surgery assessed him, but did not feel surgical intervention was indicated at this point for the loculated effusion on the left hemothorax and persistent effusion on the right. Ultimately, the left PleurX catheter was removed as it was no longer draining. Followup x-rays were just showing a loculated effusion on the left. Unfortunately, he was continuing to redevelop pleural effusions on the right. Despite IV diuretics, he developed acute kidney injury with elevated BUN and creatinine. Meds were held for a day or two and then doses were lowered via oral route and his kidney function returned to normal with normal creatinine. However, his weight continued to fluctuate and he had reoccurrence of right-sided pleural effusion. Cardiology had recommended a defibrillator placement due to his poor ejection fraction. Attempts were made at this, but the patient had such severe orthopnea, he was unable to lie on the procedure table. Again, right-sided thoracentesis was performed and I believe up to 3 times during the last 2 weeks of his hospital stay. Removing close to liter or more on each occasion. Diuretics were adjusted and ultimately he was able to proceed and complete placement of cardiac [address] [address] DISCHARGE SUMMARY Name: MARILEE SALCEDO [facility] Room #: 201-P [facility] IN ..#: [id number] Admission: 08/24/17 Attend Phys: Bubba Bautista MD Discharge: 09/21/17 Date of : 62 Report #: [id number] defibrillator. Cardiology managed his anticoagulation, Plavix was discontinued as this has been 6 [facility] Aspirin was continued, Eliquis had been held for procedures and bleeding related to an underlying diagnosis of AFib and atrial flutter along with a prior history of DVT in the legs with pulmonary embolus and presence of an IVC filter. I had multiple discussions with the Cardiology and Pulmonary team along with the patient and his . Ultimately, we are unable to reach a stable point for discharge to the community due to recurrent pleural effusions from his unstable congestive heart failure. Clinical decision was to reach out to a tertiary care center and I discussed the case with an on-call physician at [facility] in [place]. They ultimately agreed to accept him in transfer for higher level cardiac care and possible cardiothoracic surgery evaluation. DISPOSITION: As mentioned, he transferred on the day of discharge to [facility] [place]. All current medications to continue and their inpatient team will assume full care. <ELECTRONICALLY SIGNED> By: Bubba Bautista MD 09/23/17 1219 1006 1216 Bubba Bautista MD /nt
--- NOTE | ~2017-08-24 | PATH ---
[facility] [address] [place] [address] PATHOLOGY RPT PROCEDURE Name: MARILEE SALCEDO III Room #: 201-P [facility] IN .R.#: [id number] Admission: 08/24/17 Date of : 62 Discharge: 09/21/17 Report #: [id number] Path Case #: [id number] Note [facility] Accession Number: [id number] TESTS RESULT FLAG UNITS REF RANGE LAB Clinician Provided Cytology Information No. of containers..01 Other (Miscellaneous) Source: RIGHT PLEURAL FLUID DIAGNOSIS: 02 RIGHT PLEURAL FLUID NEGATIVE FOR MALIGNANT CELLS. MESOTHELIAL CELLS ARE PRESENT. THIS INTERPRETATION INCLUDES EVALUATION OF A CELL BLOCK. Signed out by: Margie Sauceda MD, Pathologist NPI- [id number] Performed by: Tay Shelton, Lean Engineer ([facility]) Gross description: 01 15 ML, YELLOW, CLOUDY /LCS FLAG LEGEND: L-Low Normal,H-High Normal,LL-Alert Low,HH-Alert High <-Panic Low,>-Panic High,A-Abnormal,AA-Critical Abnormal Performed at: [address] [place] [address] Matthew Rodrigues MD, [address] [address] Margie Sauceda MD, Performed at: [address], [place], [place] [id number] MD Matthew Rodrigues MD Phone: [phone]
--- NOTE | ~2017-08-24 | PATH ---
[facility] [address] [employer] [place] [address] PATHOLOGY RPT PROCEDURE Name: MARILEE SALCEDO III Room #: 201-P ADM IN M.R.#: [id number] Admission: 08/24/17 Date of : 62 Discharge: Report #: [id number] Path Case #: [id number] Note [facility] Accession Number: [id number] TESTS RESULT FLAG UNITS REF RANGE LAB Clinician Provided Cytology Information No. of containers..01 Other (Miscellaneous) Source: RT PLEURAL FLUID DIAGNOSIS: RT PLEURAL FLUID NEGATIVE FOR MALIGNANT CELLS. REACTIVE MESOTHELIAL CELLS ARE PRESENT. THIS INTERPRETATION INCLUDES EVALUATION OF A CELL BLOCK. Signed out by: 02 Margie Sauceda MD, Pathologist NPI- [id number] Performed by: 03 Lissett Larsen, Rinkman ([facility]) Gross description: 01 13ML, YELLOW, CLOUDY /LCS FLAG LEGEND: L-Low Normal,H-High Normal,LL-Alert Low,HH-Alert High <-Panic Low,>-Panic High,A-Abnormal,AA-Critical Abnormal Performed at: [address] [place] [address] Matthew Rodrigues MD, [address] [address] Margie Sauceda MD, [address] [address] Quinn Breen MD, Performed at: [address], [place], [place] [id number] MD Matthew Rodrigues MD Phone: [phone]
--- NOTE | ~2017-08-24 | EKG ---
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 Electronically Signed On 09-09-2017 9:46:54 CDT by Darrell Jiménez [email or web address] <ELECTRONICALLY SIGNED> By: Darrell Jiménez MD 09/09/17 0946 0855 0855 Darrell Jiménez MD /MILDRED
--- NOTE | ~2017-08-24 | HC ---
[facility] [place] [address] CONSULTATION Name: MARILEE SALCEDO [facility] Room #: 201-P ADM IN M.R.#: [id number] Admission: 08/24/17 Attend Phys: Bubba Bautista MD Discharge: Date of : 62 Report #: [id number] THIS REPORT FOR: //name// CC: Bubba Almeida TYPE OF REPORT: Infectious diseases consultation. REASON FOR CONSULTATION: I was asked to evaluate concerning possible left pleural space infection. HISTORY OF PRESENT ILLNESS: The patient was a 57-year old known from his previous hospitalization where he had complications following coronary artery bypass grafting. He has had recurring pleural effusion in the left chest and had a PleurX catheter placed. He has been dealing with this for the last 5 months, presented on 08/24/2017 when the PleurX catheter quit draining. He then developed left-sided chest pain and presented to the Emergency Room. He was placed on broad-antibiotic coverage including vancomycin and Zosyn. A PleurX catheter was exchanged. This was a fairly complicated issue and developed bleeding afterward. He has been hypotensive. He also had fluid on the right chest, which was aspirated, but this turned out to be a transudative fluid. No fever or chills. He is on low dose Levophed, although the patient is alert and cooperative on 2 liters of oxygen per nasal cannula. He has had good urine output. Still has chest pain on the left and has ecchymosis on the left side. He has required blood transfusion. CAT scan performed today has revealed loculated undrained fluid collection in the left chest despite having the catheter in place. The catheter was not draining. He also has evidence of a soft tissue hematoma to the left chest. No evidence of pneumonia. PAST MEDICAL HISTORY: STEMI, cardiac stent, obesity, diabetes, IVC filter, recurring left pleural effusion with a PleurX catheter placed, atrial flutter, coccyx ulcer, ischemic cardiomyopathy, ventricular tachycardia, DVT, morbid obesity and congestive heart failure. ALLERGIES: CAMPHOR, MENTHOL and PHENOL. MEDICATIONS: As noted on his MAR, now on Augmentin. FAMILY HISTORY: Noncontributory. SOCIAL HISTORY: Previous smoker. REVIEW OF SYSTEMS: He has had no GI or complaints. PHYSICAL EXAMINATION: VITAL SIGNS: He is afebrile, blood pressures in the 90 systolic, on a low dose [facility] [address] [place] [address] CONSULTATION Name: MARILEE SALCEDO [facility] Room #: 201-P [facility] IN .R.#: [id number] Admission: 08/24/17 Attend Phys: Bubba Bautista MD Discharge: Date of : 62 Report #: [id number] Levophed. On 3 liters of oxygen per nasal cannula. GENERAL: Alert and cooperative. SKIN: Remarkable for ecchymosis to the left chest wall, lateral and posterior. HEENT: Unremarkable. CHEST: Left PleurX type catheter in the left chest. Had tenderness surrounding this region. Had a palpable hematoma to the left chest wall. Decreased breath sounds in the left posterior chest. HEART: Regular, without murmur. ABDOMEN: Soft and nontender. No hepatosplenomegaly or mass. EXTREMITIES: 2+ edema to his lower extremities. NEUROLOGICAL: Nonfocal. RADIOLOGICAL DATA: CT scan of the chest as noted above. LABORATORY DATA: Pleural fluid analysis from the right chest consistent with transudate. Sodium 133, potassium 4.1, bicarbonate 38 and creatinine 1.3. Hemoglobin 7.3; WBC 12.6 and platelet count 470,000. Blood cultures from admission negative. Repeat blood cultures on 08/28/2017 negative. Right chest fluid analysis and cultures pending from yesterday. IMPRESSION: A 57-year old with complicated left chest process. I suspect most of this is due to a hemothorax and bleeding into the chest wall. Cannot yet exclude infectious collection. Considering the catheter has been longstanding. He appears, however, most consistent with hematoma. Does have a leukocytosis, which is mild and persistent. RECOMMENDATIONS: I would recommend continuing antibiotic coverage with Unasyn considering no positive cultures to date. We will await thoracic surgery evaluation. Likely, we would need video thoracoscopy to further evaluate this process. At that time, we will do tissue cultures. We will go with vancomycin and Unasyn at this point in time pending further culture results. <ELECTRONICALLY SIGNED> By: Christophe Mello MD 09/07/17 1155 1936 0000 Christophe Mello MD /nt
--- NOTE | ~2017-08-24 | HC ---
[facility] [place] [address] CONSULTATION Name: MARILEE SALCEDO [facility] Room #: 457-P ADM IN M.R.#: [id number] Admission: 08/24/17 Attend Phys: Bubba Bautista MD Discharge: Date of : 62 Report #: [id number] THIS REPORT FOR: //name// CC: Bubba Almeida DATE OF SERVICE: 08/25/2017 INDICATION: Dyspnea. HISTORY OF PRESENT ILLNESS: This is a 57-year-old gentleman presenting with increasing dyspnea and chest discomfort. He has an extensive cardiac history including [place], stent placement at [facility], congestive heart failure, ischemic cardiomyopathy, AFib and recurrent pleural effusions. He describes a discomfort in the upper abdominal pain on the left side, worse with movement of his upper trunk area. The pain is reproducible with palpation in the left upper abdominal area. The etiology is most likely musculoskeletal. He describes increasing dyspnea and orthopnea. There is no history of fever, cough, nausea or diarrhea. The etiology is maybe related to increased salt intake. He reports being compliant with his medications. He has a PleurX catheter for recurrent pleural effusions, reports that it has been minimal drainage in the last several days. PAST MEDICAL HISTORY: CAD with stent placement at [facility] in 02/2018. History of congestive heart failure with prolonged intubation. History of ischemic cardiomyopathy, VT, history of atrial flutter, status post cardioversion. History of DVT, on Eliquis therapy. History of VT. Blood pressure is on the low side, on low doses of cardiac medications. History of morbid obesity, tobacco use. ALLERGIES: CAMPHOR, METHANOL, PHENOL, SALICYLIC ACID. MEDICATIONS: Please see the MAR for full details. SOCIAL HISTORY: History of tobacco use. FAMILY HISTORY: Negative for premature CAD. REVIEW OF SYSTEMS: A full 10-point review of systems is performed. Only the pertinent positives and negatives are described in the HPI. PHYSICAL EXAMINATION: VITAL SIGNS: Blood pressure is 102/76, heart rate is 85 beats per minute. GENERAL APPEARANCE: An overweight male in no acute respiratory distress. HEAD AND EYES: Normocephalic. Sclerae are anicteric. [facility] [address] [place] [address] CONSULTATION Name: MARILEE SALCEDO [facility] Room #: 457-P [facility] IN M.R.#: [id number] Admission: 08/24/17 Attend Phys: Bubba Bautista MD Discharge: Date of : 62 Report #: [id number] ENT: Oral mucosa moist. NECK: Supple. LUNGS: Diminished breath sounds at the bases. CARDIAC: Distant heart sounds, S1, S2 positive. ABDOMEN: Protuberant, soft, nontender. EXTREMITIES: Chronic lymphedema. ECG reveals sinus rhythm, low voltage, nonspecific ST-T wave abnormality. LABORATORY VALUES: White count 10.8, hemoglobin is 11.5. Creatinine is 1.2, sodium is 137, troponin is negative. ASSESSMENT: 1. Congestive heart failure/ischemic cardiomyopathy, acute on chronic, mixed type. Probably related to dietary indiscretion. Continue with medications, we will switch to IV diuretics at this time. Strict I's and O's, we will limit salt intake. 2. Chest pain syndrome, atypical complaints, more likely musculoskeletal in etiology. It is reproducible with movement of the upper trunk and palpation over the area. 3. Coronary artery disease, percutaneous coronary intervention, stable with no symptoms of angina. Continue with aspirin. 4. Paroxysmal atrial flutter status post cardioversion, continue with amiodarone and Eliquis. 5. History of pleural effusion, status post PleurX catheter, as per Pulmonary. <ELECTRONICALLY SIGNED> By: Monty Adan MD 08/26/17 0908 0850 1344 Monty Adan MD /nt
--- NOTE | ~2017-08-24 | EKG ---
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: MAGI : 1960 Requested By: Fei Mello Order Number: [id number] MD: Darrell Jiménez Measurements Intervals [place] Rate: 92 P: 54 HI: 204 QRS: 7 QRSD: 84 T: QT: 389 QTc: 482 Interpretive Statements Sinus rhythm Borderline prolonged HI interval Probable left atrial enlargement Low voltage, extremity leads Abnormal R-wave progression, late transition Electronically Signed On 08-31-2017 7:57:43 CDT by Darrell Jiménez [email or web address] <ELECTRONICALLY SIGNED> By: Darrell Jiménez MD 08/31/17 0757 07 07 Darrell Jiménez MD /MILDRED
--- NOTE | ~2017-08-24 | EKG ---
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: ALYSA : 1960 Requested By: Monty Adan Order Number: [id number] MD: Sean Cowart Measurements Intervals [place] Rate: 108 P: NM: QRS: 47 QRSD: 92 T: 21 QT: 345 QTc: 463 Interpretive Statements Atrial flutter with variable AV conduction Low voltage, extremity leads Poor R wave progression Compared to ECG 08/28/2017 17:08:06 Atrial flutter has replaced sinus rhythm Electronically Signed On 09-03-2017 12:27:35 CDT by Sean Cowart [email or web address] <ELECTRONICALLY SIGNED> By: Sean Cowart MD, [facility] 09/03/17 1227 0904 0904 Sean Cowart MD, [facility] /EPI
--- NOTE | ~2017-08-24 | EKG ---
[address] [place] [address] ELECTROCARDIOGRAM REPORT Name: MARILEE SALCEDO [facility] Room #: 457-P [facility] IN .R.#: [id number] Admission: 08/24/17 Attend Phys: Bubba Bautista MD Discharge: Date of : 62 Report #: [id number] THIS REPORT FOR: //name// [facility] ED Test Date: 2017-08-24 Test Time: 11:34:17 Pat Name: MARILEE SALCEDO Department: Room: Gender: M Book Shelver: Ayse HUNT : 1960 Requested By: Tripp Briceño Order Number: [id number] MD: Darrell Jiménez Measurements Intervals [place] Rate: 80 P: 41 VT: 198 QRS: 37 QRSD: 90 T: 57 QT: 448 QTc: 517 Interpretive Statements Sinus rhythm Low voltage, extremity leads Abnormal R-wave progression, late transition Compared to ECG 07/31/2017 06:20:25 Prolonged QT interval now present First degree AV block no longer present T-wave abnormality no longer present Electronically Signed On 08-24-2017 19:55:14 CDT by Darrell Jiménez [email or web address] <ELECTRONICALLY SIGNED> By: Darrell Jiménez MD 08/24/17 1955 1134 1134 Darrell Jiménez MD /EPI
--- NOTE | ~2017-08-24 | EKG ---
[address] [place] [address] ELECTROCARDIOGRAM REPORT Name: MARILEE SALCEDO [facility] Room #: 239-P ADM IN M.R.#: [id number] Admission: 08/24/17 Attend Phys: Bubba Bautista MD Discharge: Date of : 62 Report #: [id number] THIS REPORT FOR: //name// [facility] Test Date: 2017-09-03 Test Time: 15:57:08 Pat Name: MARILEE SALCEDO Department: Room: 457 P Gender: M Best Worker: Wanda EDWARDS : 1960 Requested By: Bubba Bautista Order Number: [id number] MD: Sean Cowart Measurements Intervals [place] Rate: 97 P: [place]: QRS: 54 QRSD: 96 T: 48 QT: 360 QTc: 458 Interpretive Statements Atrial flutter Low voltage, extremity leads Compared to ECG 09/03/2017 09:04:24 No significant change was found Electronically Signed On 09-04-2017 9:14:41 CDT by Sean Cowart [email or web address] <ELECTRONICALLY SIGNED> By: Sean Cowart MD, [facility] 09/04/17 0914 1557 1557 Sean Cwoart MD, [facility] /EPI
--- NOTE | ~2017-08-24 | HC ---
[facility] [place] [address] CONSULTATION Name: MARILEE SALCEDO [facility] Room #: 201-P ADM IN M.R.#: [id number] Admission: 08/24/17 Attend Phys: Bubba Bautista MD Discharge: Date of : 62 Report #: [id number] THIS REPORT FOR: //name// CC: Bubba Almeida DATE OF SERVICE: 09/17/2017 PERSONAL PHYSICIAN: Bubba Bautista MD CHIEF COMPLAINT: Lower extremity weeping edema. HISTORY OF PRESENT ILLNESS: This is a 57-year-old white male with a history of cardiomyopathy and has now been hospitalized for several weeks after a PleurX catheter was found to be not working and the patient was having increasing shortness of breath. While here in the hospital, the patient has been noted to have increasing edema of his lower extremities with weeping. We have been asked to follow him for this. The patient himself is an extremely poor historian, but states he has had weeping edema in the past and has had an ulcer, but has never sought wound care evaluation. PAST MEDICAL HISTORY: Significant for hypertension, type 2 diabetes, morbid obesity, chronic low back pain, previous history of a pulmonary embolus and DVT and the patient does have an IVC filter in place. The patient had history of chronic respiratory failure and pleural effusion. The patient's ejection fraction is 25%. CURRENT MEDICATIONS: Multiple, I reviewed the patient's medication list. DRUG ALLERGIES: MENTHOL, CAMPHOR AND PHENOL. SOCIAL HISTORY: The patient denies tobacco or alcohol use. FAMILY HISTORY: Not pertinent to current medical condition. REVIEW OF SYSTEMS: CONSTITUTIONAL: The patient denies fevers or chills. NEUROLOGIC: The patient complains of overall generalized weakness, but no isolated weakness in his arms or legs. EYES: No complaints. ENT: No complaints. CARDIAC: The patient has chronic lower extremity edema with weeping. Denies chest pain or palpitations at this time. RESPIRATORY: The patient has chronic shortness of breath, but denies cough or wheezing [facility] [address] [place] [address] CONSULTATION Name: MARILEE SALCEDO [facility] Room #: [address] [place] [address] IN M.R.#: [id number] Admission: 08/24/17 Attend Phys: Bubba Bautista MD Discharge: Date of : 62 Report #: [id number] at this time. GASTROINTESTINAL: The patient denies nausea, vomiting, abdominal pain. GENITOURINARY: The patient denies urgency or frequency. MUSCULOSKELETAL: No complaints. SKIN: There are multiple superficial ulcerations of bilateral lower extremities with serous weeping. PHYSICAL EXAMINATION: VITAL SIGNS: Temperature 37.2, pulse 79, respirations 19, BP 109/65. GENERAL: This is alert and oriented x 3, pleasant white male with extremely flat affect. HEENT: Normocephalic, atraumatic. Mucous membranes moist. Pupils are round. Sclerae white. NECK: Supple, no obvious JVD. BACK: Nontender. LUNGS: Slight diminished breath sounds heard throughout. HEART: Regular. ABDOMEN: Obese, soft, nontender. EXTREMITIES: The patient has 3-4+ edema in bilateral lower extremities with multiple superficial areas of serous weeping fluid without signs of cellulitis. There is no erythema or warmth. Distal pulses are intact, 2+ dorsalis pedis, 1+ posterior tibial. Bilateral heels, foot and toes are all intact without open ulcerations. NEUROLOGIC: Cranial nerves 2-12 grossly intact. Motor and sensory grossly intact. LABORATORY VALUES: Lower extremity arterial Doppler shows normal bilateral arterial Doppler function without significant arterial occlusive disease. White count 10.1, hemoglobin 7.8. BUN 37, creatinine 1.1. Albumin is 1.8. IMPRESSION: 1. Chronic lower extremity edema with weeping from superficial ulcerations secondary to #2. 2. Venous insufficiency. 3. Morbid obesity. 4. Diabetes mellitus type 2. 5. Protein-calorie malnutrition - severe -- albumin 1.8. PLAN: Given the fact the patient has normal arterial Dopplers, we will be able to do compression wraps on this patient. We will order Occupational Therapy to come and perform lymphedema wraps with silver foam placed over the open ulcerations that are draining. We will change these 2-3 times weekly depending on the amount of drainage. We will encourage the patient to keep his legs elevated as much as possible. Also, encourage the patient to currently maximize his oral protein supplementation for healing. We will utilize [facility] and [address] [address] CONSULTATION Name: MARILEE SALCEDO [facility] Room #: 201-P [facility] IN M.R.#: [id number] Admission: 08/24/17 Attend Phys: Bubba Bautista MD Discharge: Date of : 62 Report #: [id number] occupational therapy for strengthening. We will continue all his other current medications. We will continue to follow the patient. By: 0809 1630 Parminder Malone MD /nt
--- NOTE | ~2017-08-24 | H ---
[facility] [address] HISTORY AND PHYSICAL Name: MARILEE SALCEDO [facility] Room #: 457-P [facility] IN M.R.#: [id number] Admission: 08/24/17 Attend Phys: Bubba Bautista MD Discharge: Date of : 62 Report #: [id number] THIS REPORT FOR: //name// CC: Bubba Almeida DATE OF SERVICE: 08/24/2017 CHIEF COMPLAINT: Shortness of breath. HISTORY OF PRESENT ILLNESS: The patient is a 57-year-old gentleman with complicated cardiopulmonary history who came back to the Emergency Room with increasing shortness of breath. He has known ischemic cardiomyopathy ejection fraction 25-30%. He has had a chronic pleural effusion since episode of respiratory failure and cardiopulmonary arrest sometime in February. He was treated at an [facility] for acute myocardial infarction with cardiac stent and unfortunately was on the ventilator. He transferred to [facility] with complications of fever and sepsis and then was admitted here, I believe in March. He was successfully weaned from the ventilator and decannulated, completed rehab and then successfully decannulated. However, he had chronic left pleural effusion that required multiple taps and ultimately chest tube drain was placed for pleural drainage at home. He completed rehab and then went home with home health. He recently was hospitalized about a month ago for decompensated heart failure. He underwent a cardioversion and additional diuresis with IV diuretics. All through these months, his chest tube has drained anywhere from 400-800 mL a day. He and his girlfriend report that in the last 3 days, he has had some steadily declining output from 600 to about 300 to about 80 mL and then the last 24 hours nothing. They had reported that fluid had been kind of pink or blood tinged, but most recent drainage was somewhat yellowish. He has had worsening shortness of breath and orthopnea and has had to use his oxygen continuously the last day or so where normally it is only ordered at night. PAST MEDICAL HISTORY: Documented above. Also, hypertension, diabetes type 2, morbid obesity, chronic low back pain. He has a history of DVT and PE and has an IVC filter in place. PAST SURGICAL HISTORY: As above. FAMILY HISTORY: Noncontributory. SOCIAL HISTORY: He lives with his girlfriend. He is very helpful. No known chronic alcohol or tobacco use. ALLERGIES: MENTHOL CAMPHOR, PHENOL. [facility] [address] [place] [address] HISTORY AND PHYSICAL Name: MARILEE SALCEDO [facility] Room #: 457-P [facility] IN [facility]#: [id number] Admission: 08/24/17 Attend Phys: Bubba Bautista MD Discharge: Date of : 62 Report #: [id number] MEDICATIONS: Oxycodone 10 mg as needed, Aldactone 25 mg, amiodarone 200 mg, Eliquis 5 mg b.i.d., aspirin 81 mg, Lipitor 40 mg, Coreg 3.125 mg p.o. at bedtime, Plavix 75 mg, Demadex 40 mg, insulin sliding scale. REVIEW OF SYSTEMS: He denies headache, chest pain, fever, chills, productive cough, nausea, vomiting, diarrhea, constipation, dysuria, syncope. OBJECTIVE: VITAL SIGNS: Temperature 36.6, pulse 79, blood pressure 105/66, O2 sat 94%. GENERAL: He is awake and alert, sitting up in the bed, in no distress. HEAD AND NECK: Unremarkable. LUNGS: Diminished left base, clear upper. HEART: Regular. ABDOMEN: Obese, soft, normoactive bowel sounds. EXTREMITIES: 2+ tense edema. No drainage. NEUROLOGIC: Cranial nerves intact. Speech is fluent. Motor strength 5/5 throughout. LABORATORY REVIEW: A pO2 of 60 on 2 liters nasal cannula. White count 12, 83% segs. BNP is 2700. Chest x-ray reveals bilateral pleural effusions. ASSESSMENT: 1. Acute on chronic systolic heart failure. 2. Bilateral pleural effusions. 3. Hypoxia due to the above. 4. Coronary artery disease. 5. Diabetes type 2. 6. Atrial fibrillation with recent cardioversion. 7. History of venous thromboembolism, on Eliquis. 8. Morbid obesity. PLAN: Additional Lasix, ordered empiric antibiotics for now. CT of the chest will be obtained to assess further. He will continue to need the pleural drainage tube or if this needs to be declotted or replaced. Pulmonary and Cardiology services have been consulted. <ELECTRONICALLY SIGNED> By: Bubba Bautista MD 08/25/17 0939 1716 1820 Bubba Bautista MD /nt
[~2017-08-24 11:09] MED LIST changes: +AMARYL4 MG PO; +COZAAR 25 MG TA25 M1 PO; +LANTUS100 UNIT/M SUBQ; +NOVOLOG100 UNIT/1 SUBQ; +PACERONE200 MG PO
[2017-08-24 11:20] VITALS: BP 105/66
[2017-08-24 11:58] LABS: BASOPHILS 0.8 % (0.0-2.0); EOSINOPHILS 1.3 % (0.0-3.0); HEMATOCRIT 37.1 % (42.0-52.0); MCH 29.5 pg (26.0-34.0); MCHC 32.4 g/dL (28.0-37.0); MCV 91.1 fL (80.0-100.0); MONOCYTES 7.8 % (1.0-8.0); PLATELET COUNT 375 thou/uL (150-400); POLYS 83.1 % (36.0-66.0); RBC 4.07 mil/uL (4.50-6.00); RDW 15.7 % (10.5-14.5)
[2017-08-24 12:06] LABS: ANION GAP 5 mmol/L (7-16); BUN 30 mg/dL (7-18); CALCIUM 9.1 mg/dL (8.5-10.1); CHLORIDE 99 mmol/L (98-107); CO2 31 mmol/L (21-32); CREATININE 1.3 mg/dL (0.7-1.3); GLUCOSE 338 mg/dL (74-106); POTASSIUM 4.1 mmol/L (3.5-5.1); SODIUM 135 mmol/L (136-145)
[2017-08-24 12:16] LABS: TROPONIN-I < 0.04 ng/mL (<0.06)
[2017-08-24 14:22] LABS: BE(vivo) 4.2 mmol/L (-2 to +3); HCO3 28.7 mmol/L (22.0-26.0); PCO2 42.5 mmHg (35.0-45.0); PO2 60.3 mmHg (80.0-100.0); pH 7.447 (7.360-7.450); sO2 92.1 % (92.0-98.0)
[2017-08-24 14:39] VITALS: BP 105/66
[2017-08-24 16:00] VITALS: BP 102/76
[2017-08-24 17:22] VITALS: BP 107/72
[2017-08-24 20:20] VITALS: BP 107/65
[2017-08-25 00:21] VITALS: BP 98/66
[2017-08-25 04:44] VITALS: BP 91/65
[2017-08-25 06:24] LABS: HEMATOCRIT 35.3 % (42.0-52.0); HEMOGLOBIN 11.5 gm/dL (14.0-18.0); MCH 29.9 pg (26.0-34.0); MCHC 32.7 g/dL (28.0-37.0); MCV 91.5 fL (80.0-100.0); RBC 3.86 mil/uL (4.50-6.00); RDW 15.8 % (10.5-14.5); WBC 10.8 thou/uL (4.0-11.0)
[2017-08-25 06:50] LABS: CREATININE 1.2 mg/dL (0.7-1.3); POTASSIUM 3.7 mmol/L (3.5-5.1)
[2017-08-25 08:00] VITALS: BP 115/79
[2017-08-25 15:49] VITALS: BP 108/71
[2017-08-25 20:02] VITALS: BP 108/75
[2017-08-26 04:34] VITALS: BP 103/67
[2017-08-26 04:41] LABS: CALCIUM 9.3 mg/dL (8.5-10.1); CREATININE 1.2 mg/dL (0.7-1.3); POTASSIUM 3.7 mmol/L (3.5-5.1)
[2017-08-26 07:39] VITALS: BP 113/83
[2017-08-26 16:49] VITALS: BP 104/69
[2017-08-26 20:11] VITALS: BP 96/66
[2017-08-27 04:48] VITALS: BP 111/72
[2017-08-27 06:09] LABS: CREATININE 1.1 mg/dL (0.7-1.3); POTASSIUM 3.9 mmol/L (3.5-5.1)
[2017-08-27 08:45] VITALS: BP 105/75
[2017-08-27 10:56] LABS: HEMATOCRIT 35.7 % (42.0-52.0); HEMOGLOBIN 11.4 gm/dL (14.0-18.0); MCH 29.6 pg (26.0-34.0); MCV 92.5 fL (80.0-100.0); RBC 3.86 mil/uL (4.50-6.00); RDW 15.5 % (10.5-14.5); WBC 10.1 thou/uL (4.0-11.0)
[2017-08-27 15:55] VITALS: BP 101/66
[2017-08-27 19:32] VITALS: BP 99/73
[2017-08-28 04:00] VITALS: BP 101/62
[2017-08-28 07:21] VITALS: BP 109/79
[2017-08-28 09:42] LABS: CALCIUM 9.5 mg/dL (8.5-10.1); CREATININE 1.2 mg/dL (0.7-1.3)
[2017-08-28 16:01] VITALS: BP 106/68
[2017-08-28 17:37] VITALS: BP 106/68
[2017-08-28 20:01] VITALS: BP 113/76
[2017-08-29 04:33] VITALS: BP 97/63
[2017-08-29 06:10] LABS: CALCIUM 9.3 mg/dL (8.5-10.1); CREATININE 1.2 mg/dL (0.7-1.3); POTASSIUM 4.1 mmol/L (3.5-5.1)
[2017-08-29 07:29] VITALS: BP 109/76
[2017-08-29 16:15] VITALS: BP 96/60
[2017-08-29 20:20] VITALS: BP 90/55
[2017-08-30 03:15] VITALS: BP 102/52
[2017-08-30 04:10] LABS: CALCIUM 10.2 mg/dL (8.5-10.1); CREATININE 1.7 mg/dL (0.7-1.3); POTASSIUM 4.4 mmol/L (3.5-5.1)
[2017-08-30 04:30] LABS: HEMATOCRIT 37.1 % (42.0-52.0); HEMOGLOBIN 12.2 gm/dL (14.0-18.0); MCH 29.7 pg (26.0-34.0); MCHC 32.9 g/dL (28.0-37.0); MCV 90.2 fL (80.0-100.0); RBC 4.12 mil/uL (4.50-6.00); RDW 16.1 % (10.5-14.5)
[2017-08-30 07:57] VITALS: BP 91/60
[2017-08-30 11:49] LABS: CALCIUM 8.8 mg/dL (8.5-10.1); POTASSIUM 3.8 mmol/L (3.5-5.1)
[2017-08-30 16:06] VITALS: BP 83/56
[2017-08-30 20:30] VITALS: BP 83/53
[2017-08-31 04:30] VITALS: BP 76/46
[2017-08-31 04:40] LABS: HEMATOCRIT 32.2 % (42.0-52.0); HEMOGLOBIN 10.3 gm/dL (14.0-18.0); MCH 28.9 pg (26.0-34.0); MCV 90.4 fL (80.0-100.0); RBC 3.56 mil/uL (4.50-6.00); WBC 12.1 thou/uL (4.0-11.0)
[2017-08-31 04:51] LABS: CALCIUM 8.9 mg/dL (8.5-10.1); CREATININE 1.8 mg/dL (0.7-1.3); POTASSIUM 3.7 mmol/L (3.5-5.1)
[2017-08-31 08:00] VITALS: BP 85/60
[2017-08-31 16:37] VITALS: BP 90/53
[2017-08-31 20:00] VITALS: BP 155/94
[2017-09-01 03:54] VITALS: BP 90/59
[2017-09-01 05:46] LABS: HEMATOCRIT 32.4 % (42.0-52.0); HEMOGLOBIN 10.3 gm/dL (14.0-18.0); MCH 28.6 pg (26.0-34.0); MCHC 31.9 g/dL (28.0-37.0); MCV 89.8 fL (80.0-100.0); RBC 3.61 mil/uL (4.50-6.00); RDW 16.4 % (10.5-14.5); WBC 11.9 thou/uL (4.0-11.0)
[2017-09-01 05:56] LABS: CALCIUM 8.9 mg/dL (8.5-10.1); CREATININE 1.6 mg/dL (0.7-1.3)
[2017-09-01 07:44] VITALS: BP 89/60
[2017-09-01 15:43] VITALS: BP 88/56
[2017-09-01 20:34] VITALS: BP 92/62
[2017-09-02 00:25] VITALS: BP 87/55
[2017-09-02 04:30] VITALS: BP 105/69
[2017-09-02 06:12] LABS: HEMATOCRIT 31.4 % (42.0-52.0); HEMOGLOBIN 10.1 gm/dL (14.0-18.0); MCHC 32.3 g/dL (28.0-37.0); MCV 89.8 fL (80.0-100.0); RBC 3.49 mil/uL (4.50-6.00)
[2017-09-02 06:25] LABS: CREATININE 1.6 mg/dL (0.7-1.3); POTASSIUM 4.1 mmol/L (3.5-5.1)
[2017-09-02 08:00] VITALS: BP 83/56
[2017-09-02 19:56] LABS: HEMATOCRIT 30.9 % (42.0-52.0); HEMOGLOBIN 10.1 gm/dL (14.0-18.0)
[2017-09-02 22:19] VITALS: BP 85/56
[2017-09-03] VITALS (40 sets, daily range): BP systolic 60–96; BP diastolic 34–68
[2017-09-03 05:53] LABS: HEMATOCRIT 29.7 % (42.0-52.0); HEMOGLOBIN 9.6 gm/dL (14.0-18.0); MCH 28.7 pg (26.0-34.0); MCHC 32.3 g/dL (28.0-37.0); MCV 88.9 fL (80.0-100.0); RBC 3.34 mil/uL (4.50-6.00); RDW 16.1 % (10.5-14.5); WBC 12.1 thou/uL (4.0-11.0)
[2017-09-03 05:55] LABS: CALCIUM 8.7 mg/dL (8.5-10.1); CREATININE 1.4 mg/dL (0.7-1.3); POTASSIUM 4.1 mmol/L (3.5-5.1)
[2017-09-03 10:21] LABS: CLARITY CLOUDY; COLOR AMBER; SOURCE CHEST FLUID; TOTAL VOLUME 60 mL
[2017-09-03 10:52] LABS: BF NUCLEATED CELLS 331; BF RBC 7940
[2017-09-03 11:37] LABS: BF NEUTROPHILS 13
[2017-09-03 16:18] LABS: HEMATOCRIT 25.2 % (42.0-52.0); HEMOGLOBIN 8.5 gm/dL (14.0-18.0); MCH 29.7 pg (26.0-34.0); MCHC 33.5 g/dL (28.0-37.0); MCV 88.6 fL (80.0-100.0); RBC 2.84 mil/uL (4.50-6.00); RDW 16.2 % (10.5-14.5); WBC 12.7 thou/uL (4.0-11.0)
[2017-09-03 16:22] LABS: CALCIUM 8.6 mg/dL (8.5-10.1); CREATININE 1.8 mg/dL (0.7-1.3); POTASSIUM 4.2 mmol/L (3.5-5.1)
[2017-09-03 20:12] LABS: HEMATOCRIT 25.9 % (42.0-52.0); HEMOGLOBIN 8.5 gm/dL (14.0-18.0)
[2017-09-04] VITALS (41 sets, daily range): BP systolic 74–110; BP diastolic 57–71
[2017-09-04 04:42] LABS: HEMATOCRIT 22.1 % (42.0-52.0); HEMOGLOBIN 7.3 gm/dL (14.0-18.0); MCH 29.4 pg (26.0-34.0); MCHC 33.1 g/dL (28.0-37.0); RBC 2.48 mil/uL (4.50-6.00); RDW 16.4 % (10.5-14.5); WBC 12.6 thou/uL (4.0-11.0)
[2017-09-04 04:48] LABS: ANION GAP < 0 mmol/L (7-16); BUN 60 mg/dL (7-18); CALCIUM 8.4 mg/dL (8.5-10.1); CHLORIDE 96 mmol/L (98-107); CO2 38 mmol/L (21-32); CREATININE 1.3 mg/dL (0.7-1.3); GLUCOSE 266 mg/dL (74-106); POTASSIUM 4.1 mmol/L (3.5-5.1); SODIUM 133 mmol/L (136-145)
[2017-09-04 07:12] LABS: BODY FLUID ALBUMIN 1.2 g/dL (()); BODY FLUID AMYLASE 7 U/L (()); BODY FLUID GLUCOSE 204 mg/dL (()); BODY FLUID LDH 88 IU/L (()); BODY FLUID PROTEIN 2.1 g/dL (())
[2017-09-04 21:48] LABS: HEMATOCRIT 26.2 % (42.0-52.0); HEMOGLOBIN 8.8 gm/dL (14.0-18.0)
[2017-09-05] VITALS (23 sets, daily range): BP systolic 86–105; BP diastolic 61–77
[2017-09-05 05:17] LABS: HEMATOCRIT 25.9 % (42.0-52.0); HEMOGLOBIN 8.7 gm/dL (14.0-18.0); MCH 29.4 pg (26.0-34.0); MCHC 33.7 g/dL (28.0-37.0); MCV 87.3 fL (80.0-100.0); RBC 2.96 mil/uL (4.50-6.00); RDW 15.6 % (10.5-14.5); WBC 14.5 thou/uL (4.0-11.0)
[2017-09-05 05:24] LABS: CALCIUM 8.5 mg/dL (8.5-10.1); POTASSIUM 3.9 mmol/L (3.5-5.1)
[2017-09-05 08:04] LABS: SOURCE CHEST FLUID
[2017-09-06] VITALS (13 sets, daily range): BP systolic 70–98; BP diastolic 43–76
[2017-09-06 05:24] LABS: CALCIUM 8.8 mg/dL (8.5-10.1); POTASSIUM 3.8 mmol/L (3.5-5.1)
[2017-09-07 00:24] VITALS: BP 80/49
[2017-09-07 03:40] LABS: CALCIUM 7.7 mg/dL (8.5-10.1); CREATININE 1.8 mg/dL (0.7-1.3); POTASSIUM 3.8 mmol/L (3.5-5.1)
[2017-09-07 04:59] VITALS: BP 89/60
[2017-09-07 07:15] VITALS: BP 88/58
[2017-09-07 11:00] VITALS: BP 88/55
[2017-09-07 15:40] VITALS: BP 73/42
[2017-09-07 19:30] VITALS: BP 76/51
[2017-09-08 00:19] VITALS: BP 83/51
[2017-09-08 03:49] VITALS: BP 81/56
[2017-09-08 03:52] LABS: CALCIUM 7.7 mg/dL (8.5-10.1); POTASSIUM 4.1 mmol/L (3.5-5.1)
[2017-09-08 04:41] LABS: MCV 88.4 fL (80.0-100.0)
[2017-09-08 04:42] LABS: MCH 29.2 pg (26.0-34.0); RBC 2.38 mil/uL (4.50-6.00); RDW 16.2 % (10.5-14.5); WBC 12.6 thou/uL (4.0-11.0)
[2017-09-08 07:20] VITALS: BP 88/57
[2017-09-08 11:35] VITALS: BP 77/49
[2017-09-08 15:28] VITALS: BP 75/48
[2017-09-08 20:15] VITALS: BP 107/51
[2017-09-09 05:32] VITALS: BP 89/57
[2017-09-09 06:24] LABS: HEMATOCRIT 21.9 % (42.0-52.0); HEMOGLOBIN 7.2 gm/dL (14.0-18.0); MCV 88.1 fL (80.0-100.0); RBC 2.49 mil/uL (4.50-6.00); RDW 16.2 % (10.5-14.5); WBC 15.4 thou/uL (4.0-11.0)
[2017-09-09 06:43] LABS: CALCIUM 8.3 mg/dL (8.5-10.1); CREATININE 2.2 mg/dL (0.7-1.3); DIGOXIN 0.4 ng/mL (0.9-2.0); POTASSIUM 4.4 mmol/L (3.5-5.1)
[2017-09-09 07:12] VITALS: BP 94/61
[2017-09-09 11:29] VITALS: BP 83/61
[2017-09-09 15:10] VITALS: BP 85/56
[2017-09-09 19:27] VITALS: BP 87/59
[2017-09-10] VITALS (9 sets, daily range): BP systolic 72–118; BP diastolic 40–68
[2017-09-10 06:30] LABS: HEMATOCRIT 21.7 % (42.0-52.0)
[2017-09-10 06:36] LABS: CALCIUM 8.2 mg/dL (8.5-10.1); CREATININE 1.6 mg/dL (0.7-1.3); POTASSIUM 4.2 mmol/L (3.5-5.1)
[2017-09-11] VITALS (7 sets, daily range): BP systolic 78–110; BP diastolic 45–68
[2017-09-11 04:24] LABS: HEMATOCRIT 26.2 % (42.0-52.0); HEMOGLOBIN 8.5 gm/dL (14.0-18.0); MCH 28.4 pg (26.0-34.0); MCHC 32.4 g/dL (28.0-37.0); MCV 87.8 fL (80.0-100.0); RBC 2.98 mil/uL (4.50-6.00); RDW 17.3 % (10.5-14.5); WBC 14.6 thou/uL (4.0-11.0)
[2017-09-11 04:35] LABS: CALCIUM 8.4 mg/dL (8.5-10.1); CREATININE 1.4 mg/dL (0.7-1.3); POTASSIUM 4.3 mmol/L (3.5-5.1)
[2017-09-12] VITALS (7 sets, daily range): BP systolic 92–107; BP diastolic 60–75
[2017-09-12 06:45] LABS: CALCIUM 8.4 mg/dL (8.5-10.1); CREATININE 1.2 mg/dL (0.7-1.3); POTASSIUM 4.1 mmol/L (3.5-5.1)
[2017-09-12 07:18] LABS: HEMATOCRIT 24.5 % (42.0-52.0); HEMOGLOBIN 8.1 gm/dL (14.0-18.0)
[2017-09-13 04:30] VITALS: BP 116/67
[2017-09-13 05:34] LABS: CALCIUM 8.2 mg/dL (8.5-10.1); CREATININE 1.2 mg/dL (0.7-1.3); POTASSIUM 4.2 mmol/L (3.5-5.1)
[2017-09-13 05:43] LABS: HEMOGLOBIN 8.3 gm/dL (14.0-18.0)
[2017-09-13 07:25] VITALS: BP 97/60
[2017-09-13 12:29] VITALS: BP 94/61
[2017-09-13 15:54] VITALS: BP 94/63
[2017-09-13 19:53] VITALS: BP 100/66
[2017-09-14 05:08] VITALS: BP 104/67
[2017-09-14 08:00] VITALS: BP 116/73
[2017-09-14 10:59] LABS: HEMATOCRIT 25.2 % (42.0-52.0); HEMOGLOBIN 8.2 gm/dL (14.0-18.0); MCH 28.3 pg (26.0-34.0); MCHC 32.5 g/dL (28.0-37.0); MCV 87.2 fL (80.0-100.0); RBC 2.89 mil/uL (4.50-6.00); RDW 16.6 % (10.5-14.5); WBC 12.3 thou/uL (4.0-11.0)
[2017-09-14 11:11] LABS: APTT 27.3 Seconds (24.5-32.8); INR 1.2
[2017-09-14 11:12] LABS: CALCIUM 8.7 mg/dL (8.5-10.1); CREATININE 1.1 mg/dL (0.7-1.3); POTASSIUM 3.9 mmol/L (3.5-5.1)
[2017-09-14 11:18] LABS: ALBUMIN 1.8 g/dL (3.4-5.0); TOTAL BILIRUBIN 0.8 mg/dL (<0.1-1.0); TOTAL PROTEIN 7.3 g/dL (6.4-8.2)
[2017-09-14 12:00] VITALS: BP 102/60
[2017-09-14 16:00] VITALS: BP 104/65
[2017-09-14 19:56] VITALS: BP 93/63
[2017-09-14 23:41] VITALS: BP 95/65
[2017-09-15 04:36] VITALS: BP 94/66
[2017-09-15 05:56] LABS: ABSOLUTE NEUTROPHILS 10.5 thou/uL (1.4-8.2); BASOPHILS 0.4 % (0.0-2.0); EOSINOPHILS 2.2 % (0.0-3.0); HEMATOCRIT 25.6 % (42.0-52.0); HEMOGLOBIN 8.3 gm/dL (14.0-18.0); LYMPHOCYTES 5.4 % (24.0-44.0); MCH 28.2 pg (26.0-34.0); MCHC 32.2 g/dL (28.0-37.0); MCV 87.7 fL (80.0-100.0); MONOCYTES 9.3 % (1.0-8.0); PLATELET COUNT 609 thou/uL (150-400); POLYS 82.7 % (36.0-66.0); RBC 2.92 mil/uL (4.50-6.00); RDW 16.6 % (10.5-14.5); WBC 12.7 thou/uL (4.0-11.0)
[2017-09-15 06:09] LABS: CALCIUM 8.6 mg/dL (8.5-10.1); CREATININE 1.1 mg/dL (0.7-1.3); POTASSIUM 4.2 mmol/L (3.5-5.1)
[2017-09-15 06:23] LABS: BE(vivo) 9.2 mmol/L (-2 to +3); HCO3 35.5 mmol/L (22.0-26.0); PCO2 59.5 mmHg (35.0-45.0); pH 7.394 (7.360-7.450); sO2 97.4 % (92.0-98.0)
[2017-09-15 07:58] VITALS: BP 94/62
[2017-09-15 10:17] LABS: CALCIUM 8.7 mg/dL (8.5-10.1); CREATININE 1.1 mg/dL (0.7-1.3); POTASSIUM 3.9 mmol/L (3.5-5.1)
[2017-09-15 12:10] VITALS: BP 96/65
[2017-09-15 15:40] VITALS: BP 88/57
[2017-09-15 19:19] VITALS: BP 88/56
[2017-09-16] VITALS (7 sets, daily range): BP systolic 76–102; BP diastolic 53–62
[2017-09-16 05:32] LABS: HEMATOCRIT 24.5 % (42.0-52.0); HEMOGLOBIN 7.8 gm/dL (14.0-18.0); MCHC 31.8 g/dL (28.0-37.0); MCV 88.1 fL (80.0-100.0); RBC 2.78 mil/uL (4.50-6.00); RDW 16.9 % (10.5-14.5); WBC 10.1 thou/uL (4.0-11.0)
[2017-09-16 05:39] LABS: CALCIUM 8.4 mg/dL (8.5-10.1); CREATININE 1.1 mg/dL (0.7-1.3); POTASSIUM 4.3 mmol/L (3.5-5.1)
[2017-09-16 13:22] LABS: SOURCE PLEURAL
[2017-09-16 13:33] LABS: BF NUCLEATED CELLS 372; BF RBC 332
[2017-09-16 13:34] LABS: CLARITY CLOUDY; COLOR YELLOW; SOURCE PLEURAL; TOTAL VOLUME 36 mL
[2017-09-16 14:03] LABS: BF MACROPHAGE 36; BF NEUTROPHILS 24
[2017-09-17 04:06] VITALS: BP 104/64
[2017-09-17 06:42] LABS: HEMATOCRIT 24.7 % (42.0-52.0)
[2017-09-17 06:50] LABS: CALCIUM 8.8 mg/dL (8.5-10.1); CREATININE 1.2 mg/dL (0.7-1.3); POTASSIUM 4.3 mmol/L (3.5-5.1)
[2017-09-17 07:06] VITALS: BP 88/53
[2017-09-17 11:20] VITALS: BP 91/56
[2017-09-17 11:38] LABS: INR 1.1; PROTIME 11.6 Seconds (9.3-11.4)
[2017-09-17 12:11] LABS: BODY FLUID ALBUMIN 1.2 g/dL (()); BODY FLUID AMYLASE 11 U/L (()); BODY FLUID GLUCOSE 241 mg/dL (()); BODY FLUID LDH 109 IU/L (()); BODY FLUID PROTEIN 2.6 g/dL (())
[2017-09-17 13:42] LABS: ANION GAP < 0 mmol/L (7-16); BUN 38 mg/dL (7-18); CALCIUM 8.6 mg/dL (8.5-10.1); CHLORIDE 98 mmol/L (98-107); CO2 39 mmol/L (21-32); CREATININE 1.2 mg/dL (0.7-1.3); GLUCOSE 363 mg/dL (74-106); SODIUM 134 mmol/L (136-145)
[2017-09-17 15:16] VITALS: BP 93/56
[2017-09-17 20:30] VITALS: BP 115/80
[2017-09-17 23:51] VITALS: BP 113/77
[2017-09-18 04:45] VITALS: BP 109/65
[2017-09-18 06:15] LABS: HEMATOCRIT 23.8 % (42.0-52.0); HEMOGLOBIN 7.7 gm/dL (14.0-18.0)
[2017-09-18 06:25] LABS: CALCIUM 8.4 mg/dL (8.5-10.1); CREATININE 1.1 mg/dL (0.7-1.3); POTASSIUM 4.1 mmol/L (3.5-5.1)
[2017-09-18 07:11] VITALS: BP 96/66
[2017-09-18 16:22] VITALS: BP 111/73
[2017-09-18 20:45] VITALS: BP 125/81
[2017-09-19 00:30] VITALS: BP 114/76
[2017-09-19 04:30] VITALS: BP 138/75
[2017-09-19 08:18] VITALS: BP 128/71
[2017-09-19 12:29] VITALS: BP 116/71
[2017-09-19 14:01] LABS: CLARITY SL CLOUDY; COLOR YELLOW; SOURCE RT CHEST; TOTAL VOLUME 65 mL
[2017-09-19 14:16] LABS: BF NUCLEATED CELLS 253; BF RBC 3808
[2017-09-19 14:26] LABS: ANION GAP < 0 mmol/L (7-16); BUN 27 mg/dL (7-18); CALCIUM 8.6 mg/dL (8.5-10.1); CHLORIDE 99 mmol/L (98-107); CO2 38 mmol/L (21-32); GLUCOSE 276 mg/dL (74-106); POTASSIUM 4.4 mmol/L (3.5-5.1); SODIUM 135 mmol/L (136-145)
[2017-09-19 15:01] LABS: BF MACROPHAGE 26; BF NEUTROPHILS 21
[2017-09-19 17:27] VITALS: BP 120/72
[2017-09-19 20:30] VITALS: BP 106/72
[2017-09-20 02:49] LABS: HEMOGLOBIN 6.8 gm/dL (14.0-18.0)
[2017-09-20 02:58] LABS: ANION GAP < 0 mmol/L (7-16); BUN 26 mg/dL (7-18); CALCIUM 8.2 mg/dL (8.5-10.1); CHLORIDE 102 mmol/L (98-107); CO2 41 mmol/L (21-32); GLUCOSE 87 mg/dL (74-106); POTASSIUM 4.1 mmol/L (3.5-5.1); SODIUM 142 mmol/L (136-145)
[2017-09-20 03:10] LABS: BODY FLUID ALBUMIN 0.9 g/dL (()); BODY FLUID AMYLASE 10 U/L (()); BODY FLUID GLUCOSE 199 mg/dL (()); BODY FLUID LDH 101 IU/L (()); BODY FLUID PROTEIN 1.8 g/dL (())
[2017-09-20 04:10] VITALS: BP 96/63
[2017-09-20 07:00] VITALS: BP 81/55
[2017-09-20 11:20] VITALS: BP 95/63
[2017-09-20 15:30] VITALS: BP 87/61
[2017-09-20 19:23] VITALS: BP 110/77
[2017-09-20 19:24] VITALS: BP 110/77
[2017-09-21 04:11] VITALS: BP 114/77
[2017-09-21 04:27] LABS: CALCIUM 8.5 mg/dL (8.5-10.1); CREATININE 1.1 mg/dL (0.7-1.3); POTASSIUM 4.2 mmol/L (3.5-5.1)
[2017-09-21 06:55] VITALS: BP 111/69
[2017-09-21 08:40] LABS: SOURCE CHEST
[2017-09-21 11:12] VITALS: BP 99/70
[2017-09-21 16:15] VITALS: BP 89/55
[2017-09-21 19:28] VITALS: BP 82/56
== END 2017-09-21 20:20 | disposition short-term general hospital (02) | DRG 226 ==
LOC: ER 11:09 → EROBS 13:29 → 4W 13:29 → ICU 09-03 17:32 → 2N 09-06 10:30
PROVIDERS: Emergency Medicine; Internal Medicine; Internal Medicine Cardiovascular Disease; Internal Medicine Geriatric Medicine; Internal Medicine Pulmonary Disease; Specialist
PROC: 0W993ZZ Drainage of Right Pleural Cavity, Percutaneous Approach (ICD-10-PCS; principal; 2017-09-03)
PROC: 02H633Z Insertion of Infusion Device into Right Atrium, Percutaneous Approach (ICD-10-PCS; principal; 2017-09-03)
PROC: 0W9B30Z Drainage of Left Pleural Cavity with Drainage Device, Percutaneous Approach (ICD-10-PCS; principal; 2017-09-03)
PROC: 30233N1 Transfusion of Nonautologous Red Blood Cells into Peripheral Vein, Percutaneous Approach (ICD-10-PCS; 2017-09-04)
PROC: 0BPQ30Z Removal of Drainage Device from Pleura, Percutaneous Approach (ICD-10-PCS; 2017-09-09)
PROC: 0W993ZZ Drainage of Right Pleural Cavity, Percutaneous Approach (ICD-10-PCS; 2017-09-16)
PROC: BB4BZZZ Ultrasonography of Pleura (ICD-10-PCS; 2017-09-16)
PROC: 02H63KZ Insertion of Defibrillator Lead into Right Atrium, Percutaneous Approach (ICD-10-PCS; 2017-09-18)
PROC: 0JH608Z Insertion of Defibrillator Generator into Chest Subcutaneous Tissue and Fascia, Open Approach (ICD-10-PCS; 2017-09-18)
PROC: 5A09357 Assistance with Respiratory Ventilation, Less than 24 Consecutive Hours, Continuous Positive Airway Pressure (ICD-10-PCS; 2017-09-18)
PROC: 02HK3KZ Insertion of Defibrillator Lead into Right Ventricle, Percutaneous Approach (ICD-10-PCS; 2017-09-18)
PROC: BB4BZZZ Ultrasonography of Pleura (ICD-10-PCS; 2017-09-19)
PROC: 0W993ZZ Drainage of Right Pleural Cavity, Percutaneous Approach (ICD-10-PCS; 2017-09-19)
DX: I13.0 Hypertensive heart and chronic kidney disease with heart failure and stage 1 through stage 4 chronic kidney disease, or unspecified chronic kidney disease (principal); J18.9 Pneumonia, unspecified organism; I50.23 Acute on chronic systolic (congestive) heart failure; J96.01 Acute respiratory failure with hypoxia; E43 Unspecified severe protein-calorie malnutrition; J90 Pleural effusion, not elsewhere classified; Z68.41 Body mass index [BMI] 40.0-44.9, adult; I48.92 Unspecified atrial flutter; N17.9 Acute kidney failure, unspecified; J94.2 Hemothorax; D62 Acute posthemorrhagic anemia; I48.91 Unspecified atrial fibrillation; I95.9 Hypotension, unspecified; I25.5 Ischemic cardiomyopathy; G47.33 Obstructive sleep apnea (adult) (pediatric); I87.2 Venous insufficiency (chronic) (peripheral); E66.01 Morbid (severe) obesity due to excess calories; I25.10 Atherosclerotic heart disease of native coronary artery without angina pectoris; K59.00 Constipation, unspecified; E11.22 Type 2 diabetes mellitus with diabetic chronic kidney disease; N18.9 Chronic kidney disease, unspecified; T50.2X5A Adverse effect of carbonic-anhydrase inhibitors, benzothiadiazides and other diuretics, initial encounter; Z91.19 Patient's noncompliance with other medical treatment and regimen; Y92.89 Other specified places as the place of occurrence of the external cause; Z95.5 Presence of coronary angioplasty implant and graft; Z86.711 Personal history of pulmonary embolism; Z79.01 Long term (current) use of anticoagulants; I25.2 Old myocardial infarction; Z86.718 Personal history of other venous thrombosis and embolism; Z88.8 Allergy status to other drugs, medicaments and biological substances

== ENCOUNTER → 2017-10-05 | Outpatient (CLI) | payer BC, OTHER | LOC: RAD 11:18 | DX: J90 Pleural effusion, not elsewhere classified (principal); I51.7 Cardiomegaly; I42.9 Cardiomyopathy, unspecified ==